=== PATIENT | male | born 1955 | race Caucasian/White ===

== ENCOUNTER 2016-06-18 04:04 | Inpatient (IN) | payer BC ==
[2016-06-18] VITALS (20 sets, daily range): BP systolic 140–220; BP diastolic 73–109; PULSE 77–100; RESP 16–26; TEMP 98.1–98.7; O2SAT 94–100
[~2016-06-18] VITALS: Ht 182.9 cm; Wt 127.8 kg
[2016-06-18] MEDS ORDERED: BUME1TAB28 PO (04:22)
[2016-06-18] MEDS ORDERED: HUMA100I3 SQ (04:22)
[2016-06-18] MEDS ORDERED: FERR1TAB36 PO (04:22)
[2016-06-18] MEDS ORDERED: LANTINJ SQ (04:22)
[2016-06-18] MEDS ORDERED: SODIUM CHLORIDE 0.9% FLUSH 5 ML FLUSH IVF PRN (04:30)
[2016-06-18] MEDS: niCARdipine INJ 25 MG in SODIUM CHLOR 0.9% 250 ML INJ 250 ML IV SCH ×4 (04:34→21:00)
[2016-06-18] MEDS ORDERED: ASPI81CH7 CHEW (04:38)
[2016-06-18] MEDS ORDERED: XARE15TA PO (04:38)
[2016-06-18] MEDS ORDERED: TAMS5CAP PO (04:39)
[2016-06-18] MEDS ORDERED: ATOR1TAB18 PO (04:39)
[2016-06-18 04:54] LABS: BLOOD GAS BASE EXCESS -2.3 mmol/L (-2-2); BLOOD GAS CARBOXYHEMOGLOBIN 1.8 % (0-4); BLOOD GAS HCO3 22 mmol/L (22-26); BLOOD GAS METHEMOGLOBIN 0.6 % (0-2); BLOOD GAS O2 HGB SATURATION 97 % (90-100); BLOOD GAS OXYGEN CONTENT 13.5 Vol % (12.0-20.0); BLOOD GAS PCO2 37 mmHg (38-42); BLOOD GAS PO2 157 mmHg (61-120); BLOOD GAS TOTAL HGB 9.6 G/DL (12.0-16.0); CRITICAL VALUE NO; OXYGEN DEVICE NPPV; TEMP CORR TO 98.6
[2016-06-18 04:55] LABS: DRAW SITE LT RADIAL; FIO2 40 %; NUMBER OF ARTERIAL PUNCTURES 1; STAT YES; ULNAR PULSE PRESENT; VENT SETTINGS IPAP12/EPAP5
[2016-06-18 05:11] LABS: APTT (PATIENT) 26.3 SEC (24.3-30.1); INTERNATIONAL NORMALIZED RATIO 1.1 RATIO; PROTHROMBIN TIME - PATIENT 11.9 SEC (9.8-11.6)
[2016-06-18 05:17] LABS: ALT (GPT) 31 U/L (12-78); ANION GAP 11 MEQ/L (5-15); AST (GOT) 30 U/L (15-37); BICARBONATE 24.4 MEQ/L (21.0-32.0); BLOOD UREA NITROGEN 44 MG/DL (7-18); CHLORIDE 108 MEQ/L (98-107); GLOMERULAR FILTRATION RATE 23 ML/MIN (>89); MAGNESIUM 1.9 MG/DL (1.5-2.5); POTASSIUM 3.8 MEQ/L (3.5-5.1); SODIUM (NA) 143 MEQ/L (136-145)
[2016-06-18 05:21] LABS: ALKALINE PHOSPHATASE 110 U/L (45-117); CREATINE KINASE 335 U/L (39-308); TOTAL BILIRUBIN ADULT 0.4 MG/DL (0.2-1.0)
[2016-06-18 05:24] LABS: AUTOMATED NEUTROPHIL # 5.6 TH/MM3 (1.8-7.7); BASOPHIL # 0.1 TH/MM3 (0-0.2); BASOPHIL % 1.1 % (0.0-2.0); EOSINOPHIL # 0.2 TH/MM3 (0-0.4); EOSINOPHIL % 2.4 % (0.0-4.0); HEMATOCRIT 30.8 % (39.0-51.0); LYMPH % 16.9 % (9.0-44.0); LYMPHOCYTE # 1.4 TH/MM3 (1.0-4.8); MEAN CELL VOLUME 82.3 FL (80.0-100.0); MEAN CORPUSCULAR HEMOGLOBIN 27.1 PG (27.0-34.0); MEAN CORPUSCULAR HGB CONC 32.9 % (32.0-36.0); MONO % 10.1 % (0.0-8.0); NEUT % 69.5 % (16.0-70.0); PLATELET COUNT 312 TH/MM3 (150-450); RED BLOOD COUNT 3.75 MIL/MM3 (4.50-5.90); RED CELL DISTRIBUTION WIDTH 14.1 % (11.6-17.2)
[2016-06-18 05:33] LABS: CKMB 5.9 NG/ML (0.5-3.6)
[2016-06-18] MEDS ORDERED: ASPIRIN 81 MG CHEW TAB CHEW ONE (06:00)
[2016-06-18] MEDS ORDERED: ACETAMINOPHEN 325 MG TAB PO PRN (06:30)
[2016-06-18] MEDS ORDERED: SODIUM CHLORIDE 0.9% FLUSH 5 ML FLUSH FLUSH PRN (06:30)
[2016-06-18] MEDS ORDERED: ONDANSETRON HCL 4 MG/2 ML VIAL IVP PRN (06:30)
[2016-06-18] MEDS ORDERED: BISACODYL 10 MG SUPP PR PRN (06:30)
[2016-06-18] MEDS ORDERED: DEXTROSE 50% IN WATER 50 ML VIAL(D50) IV PUSH PRN (06:30)
[2016-06-18] MEDS ORDERED: GLUCAGON 1 MG/ML VIAL OTHER PRN (06:30)
--- NOTE | 2016-06-18 06:31 | PD ---
HPI Chief Complaint: Respiratory Distress Time Seen by Provider: 04:16 Travel History International Travel<30 days: No Contact w/Intl Traveler<30days: No Traveled to known affect area: No History of Present Illness HPI Patient 60-year-old male presents emergency department for shortness of breath fairly acute onset tonight. According to EMS his initial saturation was 93 on room air. They noted rales throughout all lung cote and started him on BiPAP. Patient does have a history of chronic renal disease not currently on dialysis also has a history of CHF and a prior NSTEMI that is not had any stents nor CABG. Patient also endorses some tight left-sided chest pain radiating down his left arm. Denies any fever denies any cough or congestion. Denies any abdominal pain. On arrival patient states he is breathing much better with CPAP. PFSH Past Medical History Cardiovascular Problems: Yes High Cholesterol: Yes Congestive Heart Failure: Yes Cerebrovascular Accident: Yes (right side deficit) Diabetes: Yes Patient Takes Glucophage: No Diminished Hearing: No GERD: Yes Genitourinary: Yes (kidneys at 22%) Hypertension: Yes Respiratory: Yes Myocardial Infarction: Yes Triglycerides - High: Yes Past Surgical History Oral Surgery: Yes Social History Alcohol Use: Yes (occasional) Tobacco Use: No (quit 17 yrs ago) Substance Use: No Allergies-Medications (Allergen,Severity, Reaction): Coded Allergies: No Known Allergies (Unverified , 06/18/16) Reported Meds & Prescriptions Reported Meds & Active Scripts Active Reported Atorvastatin (Atorvastatin Calcium) 80 Mg Tab 80 Mg PO HS Flomax (Tamsulosin HCl) 0.4 Mg Cap 0.4 Mg PO HS Aspirin Children's (Aspirin) 81 Mg Chew 81 Mg CHEW DAILY Xarelto (Rivaroxaban) 15 Mg Tab 15 Mg PO DAILY Iron (Ferrous Sulfate) 325 Mg Tab 325 Mg PO BIDPC Take after a meal. Lantus Solostar Pen Inj (Insulin Glargine) 300 Unit/3 Ml Pen 55 Units SQ HS Humalog Kwikpen Pen Inj (Insulin Lispro (Human) Inj) 300 Unit/3 Ml Pen 20 Units SQ ACHS Bumex (Bumetanide) 2 Mg Tab 2 Mg PO BID Review of Systems Except as stated in HPI: all other systems reviewed are Neg Physical Exam Narrative GENERAL: Well-developed well-nourished on CPAP with subcostal retractions. SKIN: Warm and dry. HEAD: Atraumatic. Normocephalic. EYES: Pupils equal and round. No scleral icterus. No injection or drainage. ENT: No nasal bleeding or discharge. Mucous membranes pink and moist. NECK: Trachea midline. No JVD. CARDIOVASCULAR: Regular rate and rhythm. No murmur appreciated 2+ bilateral equal pulses in all 4 extremities.. RESPIRATORY: No accessory muscle use. Clear to auscultation. Breath sounds equal bilaterally. Increased work of breathing. GASTROINTESTINAL: Abdomen soft, non-tender, nondistended. Hepatic and splenic margins not palpable. MUSCULOSKELETAL: No obvious deformities. No clubbing. No cyanosis. 2+ pitting edema to bilateral lower extremities to the level of the anterior tibial prominence. NEUROLOGICAL: Awake and alert. No obvious cranial nerve deficits. Motor grossly within normal limits. Normal speech. PSYCHIATRIC: Appropriate mood and affect; insight and judgment normal. Data Data Last Documented VS Vital Signs Date Time Temp Pulse Resp B/P Pulse Ox O2 Delivery O2 Flow Rate FiO2 06/18/16 06:02 140/74 06/18/16 05:51 98 Nasal Cannula 2.00 06/18/16 05:30 87 06/18/16 05:15 16 35 06/18/16 04:07 98.7 Orders B-Type Natriuretic Peptide (06/18/16 04:16) Ckmb (Isoenzyme) Profile (06/18/16 04:16) Complete Blood Count With Diff (06/18/16 04:16) Comprehensive Metabolic Panel (06/18/16 04:16) Magnesium (Mg) (06/18/16 04:16) Prothrombin Time / Inr (Pt) (06/18/16 04:16) Act Partial Throm Time (Ptt) (06/18/16 04:16) Troponin I (06/18/16 04:16) Chest, Single Ap (06/18/16 04:16) Ecg Monitoring (06/18/16 04:16) Bilateral Bp Monitoring (06/18/16 04:16) Iv Access Insert/Monitor (06/18/16 04:16) Oximetry (06/18/16 04:16) Oxygen Administration (06/18/16 04:16) Sodium Chloride 0.9% Flush (Ns Flush) (06/18/16 04:30) Nicardipine Inj (Cardene Inj) (06/18/16 04:30) Resp Bipap / Cpap Non Invas Vt (06/18/16 ) Arterial Blood Gas (Abg) (06/18/16 ) CKMB (06/18/16 04:30) CKMB% (06/18/16 04:30) Aspirin Chew (Aspirin Chew) (06/18/16 06:00) Admit Order (Ed Use Only) (06/18/16 ) Urinalysis - C+S If Indicated (06/18/16 06:26) Admit To Inpatient (06/18/16 ) Vital Signs (Adult) Q4H (06/18/16 06:26) Activity Oob With Assistance (06/18/16 06:26) Principle Software Engineer / Telemetry .CONTINUOUS (06/18/16:26) Intake + Output TONG.QSHIFT (06/18/16 06:26) Diet 1800 Ada Cons Carb (06/18/16 Breakfast) Sodium Chloride 0.9% Flush (Ns Flush) (06/18/16 06:30) Sodium Chloride 0.9% Flush (Ns Flush) (06/18/16 09:00) Ondansetron Inj (Zofran Inj) (06/18/16 06:30) Bisacodyl Supp (Dulcolax Supp) (06/18/16 06:30) Comprehensive Metabolic Panel (06/19/16 06:00) Complete Blood Count With Diff (06/19/16 06:00) Troponin I (06/18/16 10:00) Troponin I (06/18/16 16:00) Pharmacologic Contraindication (06/18/16 06:26) Acetaminophen (Tylenol) (06/18/16 06:30) Acetamin-Hydrocod 325-5 Mg (Stuart 5-325 (06/18/16 06:30) Morphine Inj (Morphine Inj) (06/18/16 06:30) Inpatient Certification (06/18/16 ) Bedside Glucose TONG.AC&HS (06/18/16:26) ^ Blood Glucose Goal (Criteria (06/18/16 06:26) ^ Hypoglycemia 51 - 69 Mg/Dl (06/18/16 06:26) ^ Hypoglycemia 50 Mg/Dl Or < (06/18/16 06:26) ^ Notify Dr: Other (06/18/16 06:26) Dextrose 50% In Jarret (Vial) Inj (D50w (Vi (06/18/16 06:30) Glucagon Inj (Glucagon Inj) (06/18/16 06:30) Insulin Aspart Supplemtl Scale (Novolog (06/18/16 07:00) Hemoglobin (Hgb) A1c (06/18/16 10:00) Lipid Profile (06/18/16 10:00) Aspirin Chew (Aspirin Chew) (06/18/16 09:00) Atorvastatin (Lipitor) (06/18/16 21:00) Bumetanide (Bumetanide) (06/18/16 09:00) Ferrous Sulfate (Ferrous Sulfate) (06/18/16 09:00) Rivaroxaban (Xarelto) (06/18/16 09:00) Tamsulosin (Flomax) (06/18/16 21:00) Patient Own Medication (06/18/16 21:00) Labs Laboratory Tests Test 06/18/16 04:30 White Blood Count 8.0 TH/MM3 Red Blood Count 3.75 MIL/MM3 Hemoglobin 10.1 GM/DL Hematocrit 30.8 % Mean Corpuscular Volume 82.3 FL Mean Corpuscular Hemoglobin 27.1 PG Mean Corpuscular Hemoglobin 32.9 % Concent Red Cell Distribution Width 14.1 % Platelet Count 312 TH/MM3 Mean Platelet Volume 8.7 FL Neutrophils (%) (Auto) 69.5 % Lymphocytes (%) (Auto) 16.9 % Monocytes (%) (Auto) 10.1 % Eosinophils (%) (Auto) 2.4 % Basophils (%) (Auto) 1.1 % Neutrophils # (Auto) 5.6 TH/MM3 Lymphocytes # (Auto) 1.4 TH/MM3 Monocytes # (Auto) 0.8 TH/MM3 Eosinophils # (Auto) 0.2 TH/MM3 Basophils # (Auto) 0.1 TH/MM3 CBC Comment AUTO DIFF Differential Comment AUTO DIFF CONFIRMED Ovalocytes 1+ Keratocytes 1+ Prothrombin Time 11.9 SEC Prothromb Time International 1.1 RATIO Ratio Activated Partial 26.3 SEC Thromboplast Time Blood Gas Puncture Site LT RADIAL Blood Gas Patient Temperature 98.6 Blood Gas HCO3 22 mmol/L Blood Gas Base Excess -2.3 mmol/L Blood Gas Oxygen Saturation 97 % Arterial Blood pH 7.39 Arterial Blood Partial 37 mmHg Pressure CO2 Arterial Blood Partial 157 mmHg Pressure O2 Arterial Blood Oxygen Content 13.5 Vol % Arterial Blood 1.8 % Carboxyhemoglobin Arterial Blood Methemoglobin 0.6 % Blood Gas Hemoglobin 9.6 G/DL Oxygen Delivery Device NPPV Blood Gas Ventilator Setting IPAP12/EPAP5 Blood Gas Inspired Oxygen 40 % Sodium Level 143 MEQ/L Potassium Level 3.8 MEQ/L Chloride Level 108 MEQ/L Carbon Dioxide Level 24.4 MEQ/L Anion Gap 11 MEQ/L Blood Urea Nitrogen 44 MG/DL Creatinine 2.77 MG/DL Estimat Glomerular Filtration 23 ML/MIN Rate Random Glucose 124 MG/DL Calcium Level 8.7 MG/DL Magnesium Level 1.9 MG/DL Total Bilirubin 0.4 MG/DL Aspartate Amino Transf 30 U/L (AST/SGOT) Alanine Aminotransferase 31 U/L (ALT/SGPT) Alkaline Phosphatase 110 U/L Total Creatine Kinase 335 U/L Creatine Kinase MB 5.9 NG/ML Creatine Kinase MB % 1.8 % Troponin I 0.25 NG/ML B-Type Natriuretic Peptide 304 PG/ML Total Protein 7.5 GM/DL Albumin 2.8 GM/DL [facility] Medical Decision Making Medical Screen Exam Complete: Yes Emergency Medical Condition: Yes Differential Diagnosis CHF exacerbation, hypertensive emergency, and STEMI, CAD, ACS, fluid overload, electrolyte abnormalities. Narrative Course Patient roomed in the emergency department, he was switched to BiPAP and ultimately was able to be weaned off to nasal cannula after he was diuresed with Bumex. Systolic blood pressure was noted to be in the 220s her present antihypertensive emergency and he was started on Cardene ultimately was able to be weaned off in the emergency department as well. Creatinine is elevated at 2.7 without previous for comparison. Troponin elevated 0.25 again without previous for comparison. His EKG is nonischemic. Overall the patient has improved significantly since arrival of EMS. Last 24 hours Impressions Chest X-Ray 06/18/16 0416 Signed Impressions: Service Date/Time: Saturday, June 18, 2016 04:50 - CONCLUSION: Mild basilar parenchymal opacities. Enrrique Dickson MD History is consistent with acute pulmonary edema by time his chest x-ray was taken here he had already received multiple interventions including BiPAP does have some mild pulmonary edema on his chest x-ray. We'll defer heparinization at this time given his anticoagulant status. Discussed with the patient his results including the elevated troponin creatinine and his pulmonary edema. I recommended he be admitted to the hospital and he is agreeable. Patient was discussed with Dr. Herring and agrees recommendations for CIC. Patient does not have a business asst in the area and she is from out of town. Critical Care Narrative Aggregate critical care time was 35 minutes. Time to perform other separately billable procedures was not included in the critical care time. My time did not include minutes spent treating any other patients simultaneously or on activities that did not directly contribute to the patient's treatment. The services I provided to this patient were to treat and/or prevent clinically significant deterioration that could result in: , disability, organ failure. I provided critical care services requiring my management, as noted below: Chart data review, documentation time, medication orders and management, vital sign assessments/reviewing monitor data, ordering and reviewing lab tests, ordering and interpreting/reviewing x-rays and diagnostic studies, care of the patient and discussion of the patient with the admitting physicians. Diagnosis Primary Impression: Hypertensive emergency Additional Impressions: NSTEMI (non-ST elevated myocardial infarction) Shortness of breath Pulmonary edema Qualified Code: J81.0 - Acute pulmonary edema Admitting Information Admitting Physician Requests: Admit Condition: Stable Michael Rosenbaum MD Jun 18, 2016 06:31
[2016-06-18 06:35] LABS: HEMO FLAGS AUTO DIFF
[2016-06-18 06:36] LABS: KERATOCYTES 1+ (NORMAL); OVALOCYTES 1+ (NORMAL); SCAN/DIFF AUTO DIFF CONFIRMED
[2016-06-18] MEDS: INSULIN ASPART SUPPLEMENTAL SCALE SQ SCH ×4 (07:00→21:01)
--- NOTE | 2016-06-18 07:11 | RADRPT ---
EXAM DATE/TIME: 06/18/2016 04:50 [place] COMPARISON: No previous studies available for comparison. INDICATIONS : Shortness of breath. MEDICAL HISTORY : None. SURGICAL HISTORY : None. ENCOUNTER: Initial ACUITY: 1 day PAIN SCORE: Non-responsive. LOCATION: Bilateral chest FINDINGS: Appears be mild hazy basilar parenchymal opacity bilaterally. Accounting for projection, cardiac cont ours are grossly satisfactory. CONCLUSION: Mild basilar parenchymal opacities. Enrrique Dickson MD on June 18, 2016 at 7:09 Board Certified Radiologist. This report was verified electronically.
--- NOTE | 2016-06-18 08:27 | HHI.HP ---
[facility] Unknown Admission Diagnosis CHF, NSTEMI, CP. Diagnoses: (1) Acute respiratory failure (2) Acute renal failure (3) Elevated troponin I level Chief Complaint: Dyspnea Travel History International Travel<30 Days: No Contact w/Intl Traveler <30 Da: No Traveled to Known Affected Are: No History of Present Illness The patient is a 60-year-old male with known history of CHF who is in town for a few weeks visiting from [place]. He states that he has not been following his diet, fluid restriction over the last few days. He reports that at 2:30 this morning he was awakened from sleep with a sensation of not being able to catch his breath. He reports coughing, nonproductive. He had mild chest pain that did not radiate. He reports chronic kidney disease, stating that his kidneys "are at about 23%". He is feeling somewhat better after treatment in the ER. No chest pain currently. Review of Systems Constitutional: DENIES: Fever, Chills, Night Sweats Eyes: DENIES: Blurred vision, Vision loss Ears, nose, mouth, throat: DENIES: Hearing loss Respiratory: COMPLAINS OF: Cough, Shortness of breath, DENIES: Wheezing, Sputum production Cardiovascular: COMPLAINS OF: Chest pain, Dyspnea on Exertion, Lower Extremity Edema, DENIES: Palpitations Gastrointestinal: COMPLAINS OF: Constipation, DENIES: Abdominal pain, Diarrhea , Nausea, Vomiting Genitourinary: DENIES: Urinary frequency, Urinary incontinence, Urgency, Hematuria, Dysuria, Nocturia Musculoskeletal: DENIES: Joint pain, Muscle aches Integumentary: DENIES: Pruritus, Rash Hematologic/lymphatic: DENIES: Bruising Neurologic: DENIES: Headache Past Family Social History Past Medical History Congestive heart failure Coronary artery disease Diabetes mellitus Hypertension Hyperlipidemia Chronic kidney disease stage III History of CVA with residual right-sided weakness GERD Past Surgical History Vascular bypass of left lower extremity Reported Medications Atorvastatin (Atorvastatin Calcium) 80 Mg Tab 80 Mg PO HS Flomax (Tamsulosin HCl) 0.4 Mg Cap 0.4 Mg PO HS Aspirin Children's (Aspirin) 81 Mg Chew 81 Mg CHEW DAILY Xarelto (Rivaroxaban) 15 Mg Tab 15 Mg PO DAILY Iron (Ferrous Sulfate) 325 Mg Tab 325 Mg PO BIDPC Take after a meal. Lantus Solostar Pen Inj (Insulin Glargine) 300 Unit/3 Ml Pen 55 Units SQ HS Humalog Kwikpen Pen Inj (Insulin Lispro (Human) Inj) 300 Unit/3 Ml Pen 20 Units SQ ACHS Bumex (Bumetanide) 2 Mg Tab 2 Mg PO BID Allergies: Coded Allergies: No Known Allergies (Unverified , 06/18/16) Family History Mother is diabetic. Brother has Crohn's disease. Social History Patient reports rare alcohol use. Quit smoking 17 years ago. Denies illicit drug use. Physical Exam Vital Signs Vital Signs Date Time Temp Pulse Resp B/P Pulse Ox O2 Delivery O2 Flow Rate FiO2 06/18/16 08:19 99 Nasal Cannula 2 06/18/16 06:02 140/74 06/18/16 05:51 98 Nasal Cannula 2.00 06/18/16 05:30 87 141/74 06/18/16 05:15 84 16 164/73 100 CPAP 35 06/18/16 04:55 100 30 06/18/16 04:37 100 CPAP 50 06/18/16 04:37 16 100 CPAP 50 06/18/16 04:35 200/90 06/18/16 04:35 220/109 210/102 06/18/16 04:07 98.7 92 16 220/109 100 06/18/16 04:05 100 50 06/18/16 04:00 100 100 Physical Exam GENERAL: Obese male in no acute distress. Speech is mildly slurred. HEENT: Normocephalic, atraumatic. Pupils equal, round and reactive. Extraocular movements intact. No scleral icterus. No injection or drainage. Oropharynx is clear. Mucous membranes are moist. CARDIOVASCULAR: Regular rate and rhythm without murmurs, gallops, or rubs. RESPIRATORY: Bilateral crackles are noted. Breathing is non-labored. GASTROINTESTINAL: Abdomen soft, non-tender, nondistended. EXTREMITIES: 2+ bilateral lower extremity edema with serous fluid weeping. There is erythema of both lower legs. PSYCH: Alert and oriented x 3. Laboratory Laboratory Tests Test 06/18/16 04:30 White Blood Count 8.0 Red Blood Count 3.75 Hemoglobin 10.1 Hematocrit 30.8 Mean Corpuscular Volume 82.3 Mean Corpuscular Hemoglobin 27.1 Mean Corpuscular Hemoglobin 32.9 Concent Red Cell Distribution Width 14.1 Platelet Count 312 Mean Platelet Volume 8.7 Neutrophils (%) (Auto) 69.5 Lymphocytes (%) (Auto) 16.9 Monocytes (%) (Auto) 10.1 Eosinophils (%) (Auto) 2.4 Basophils (%) (Auto) 1.1 Neutrophils # (Auto) 5.6 Lymphocytes # (Auto) 1.4 Monocytes # (Auto) 0.8 Eosinophils # (Auto) 0.2 Basophils # (Auto) 0.1 CBC Comment AUTO DIFF Differential Comment AUTO DIFF CONFIRMED Ovalocytes 1+ Keratocytes 1+ Prothrombin Time 11.9 Prothromb Time International 1.1 Ratio Activated Partial 26.3 Thromboplast Time Blood Gas Puncture Site LT RADIAL Blood Gas Patient Temperature 98.6 Blood Gas HCO3 22 Blood Gas Base Excess -2.3 Blood Gas Oxygen Saturation 97 Arterial Blood pH 7.39 Arterial Blood Partial 37 Pressure CO2 Arterial Blood Partial 157 Pressure O2 Arterial Blood Oxygen Content 13.5 Arterial Blood 1.8 Carboxyhemoglobin Arterial Blood Methemoglobin 0.6 Blood Gas Hemoglobin 9.6 Oxygen Delivery Device NPPV Blood Gas Ventilator Setting IPAP12/EPAP5 Blood Gas Inspired Oxygen 40 Sodium Level 143 Potassium Level 3.8 Chloride Level 108 Carbon Dioxide Level 24.4 Anion Gap 11 Blood Urea Nitrogen 44 Creatinine 2.77 Estimat Glomerular Filtration 23 Rate Random Glucose 124 Calcium Level 8.7 Magnesium Level 1.9 Total Bilirubin 0.4 Aspartate Amino Transf 30 (AST/SGOT) Alanine Aminotransferase 31 (ALT/SGPT) Alkaline Phosphatase 110 Total Creatine Kinase 335 Creatine Kinase MB 5.9 Creatine Kinase MB % 1.8 Troponin I 0.25 B-Type Natriuretic Peptide 304 Total Protein 7.5 Albumin 2.8 Result Diagram: 06/18/1642906/18/16429 Imaging Last Impressions Chest X-Ray 06/18/16415 Signed Impressions: Service Date/Time: Saturday, June 18, 2016 04:50 - CONCLUSION: Mild basilar parenchymal opacities. Enrrique Dickson MD Assessment and Plan Assessment and Plan 1. CHF exacerbation: Patient presented with acute dyspnea likely related to fluid overload. Continue diuresis. Fluid restriction. Check echocardiogram. 2. Acute respiratory failure: Secondary to above. Improved. Patient required BiPAP initially. Now stable on nasal cannula. Continue supplemental oxygen. 3. Diabetes mellitus: Monitor Accu-Cheks and cover with sliding scale insulin. Continue Levemir. 4. Chronic kidney disease stage III: Monitor BUN and creatinine, especially with increased diuresis. 5. Hypertension: Blood pressure was significantly elevated upon presentation to the ER. Patient was started on Cardene drip, and blood pressures improved. Now off all drips. 6. Hyperlipidemia: Continue statin. 7. Elevated troponin: Possible non-ST elevation [place]. Consult cardiology. Monitor serial cardiac enzymes and EKGs. 8. DVT prophylaxis: Xarelto. Code Status FULL CODE Otoniel Cordero MD Jun 18, 2016 08:27
[2016-06-18] MEDS ORDERED: BUMETANIDE 1 MG TAB PO SCH (09:00)
[2016-06-18] MEDS ORDERED: RIVAROXABAN 15 MG TAB PO SCH (09:00)
[2016-06-18] MEDS: FERROUS SULFATE 325 MG (65 MG ELEMENTAL IRON) TAB PO SCH ×2 (09:07→17:50)
[2016-06-18] MEDS: SODIUM CHLORIDE 0.9% FLUSH 5 ML FLUSH FLUSH SCH ×2 (09:08→21:00)
[2016-06-18] MEDS: BUMETANIDE INJ 1 MG/4 ML VIAL IV PUSH SCH ×2 (09:08→17:50)
[2016-06-18] MEDS: ASPIRIN 81 MG CHEW TAB CHEW SCH (09:08)
[2016-06-18 09:50] LABS: BLOOD, URINE MOD (NEG); COMMENT (UR) CULT NOT INDICATED; CULTURE IF INDICATED CULT NOT INDICATED; GLUCOSE,URINE 150 mg/dL (NEG); KETONE, URINE NEG (NEG); MUCUS URINE FEW /lpf (OCC); NITRITE,URINE NEG (NEG); PH, URINE 6.5 (5.0-8.5); SQUAMOUS EPITHELIAL CELL URINE <1 /hpf (0-5); URINE COLOR YELLOW (YELLW/STRAW)
[2016-06-18 12:41] LABS: HDL CHOLESTEROL 36.4 MG/DL (40.0-60.0); LDL CHOLESTEROL 55 MG/DL (0-99)
[2016-06-18] MEDS ORDERED: cloNIDine HCL 0.1 MG TAB PO PRN (13:00)
--- NOTE | 2016-06-18 14:19 | EC ---
Study Study Date:06/18/2016 STUDY CONCLUSIONS SUMMARY - Left ventricle: Wall thickness was increased in a pattern of mild LVH. Systolic function was mildly to moderately reduced. The estimated ejection fraction was in the range of 40% to 45%. Severe hypokinesis of the apical myocardium. - Aortic valve: Valve area: 1.06cm^2(VTI). Valve area: 1.2cm^2 (Vmax). If LV function is below 40, please consider prescribing an ACEI or ARB or document rationale for non-use. PROCEDURE DATA STUDY STATUS: Elective. Procedure: Transthoracic echocardiography. Image quality was poor. Scanning was performed from the parasternal, apical, and subcostal acoustic windows. Study completion: The patient tolerated the procedure well. Transthoracic echocardiography. M-mode, complete 2D, complete spectral Doppler, and color Doppler. Patient status: Inpatient. CARDIAC ANATOMY LEFT VENTRICLE: Wall thickness was increased in a pattern of mild LVH. Systolic function was mildly to moderately reduced. The estimated ejection fraction was in the range of 40% to 45%. Regional wall motion abnormalities: Severe hypokinesis of the apical myocardium. AORTIC VALVE: heavily thickened and calcified leaflests with peak gradient =19 mm hg c/w mild aortic valve stenosis Trileaflet; normal thickness leaflets. Doppler: Transvalvular velocity was within the normal range. There was no stenosis. No regurgitation. Valve area: 1.06cm^2(VTI). Valve area: 1.2cm^2 (Vmax). Mean gradient: 10mm Hg (S). Peak gradient: 19mm Hg (S). AORTA: Aortic root: The aortic root was normal in size. MITRAL VALVE: Structurally normal valve. Doppler: Transvalvular velocity was within the normal range. There was no evidence for stenosis. No regurgitation. Valve area by pressure half-time: 3.61cm^2. LEFT ATRIUM: The atrium was normal in size. RIGHT VENTRICLE: The cavity size was normal. Wall thickness was normal. PULMONIC VALVE: Doppler: Transvalvular velocity was within the normal range. There was no evidence for stenosis. No regurgitation. TRICUSPID VALVE: Structurally normal valve. Doppler: Transvalvular velocity was within the normal range. No regurgitation. PULMONARY ARTERY: The main pulmonary artery was normal-sized. Systolic pressure was within the normal range. RIGHT ATRIUM: The atrium was normal in size. PERICARDIUM: There was no pericardial effusion. SYSTEMIC VEINS: Inferior vena cava: The vessel was normal in size. BASIC MEASUREMENTS ADULT NORMAL Left ventricle LV internal dimension, ED, chordal level, 49.8 mm 43-52 PLAX LV internal dimension, ES, chordal level, *41 mm 23-38 PLAX Fractional shortening, chordal level, PLAX *18 % >29 LV posterior wall thickness, ED 15.6 mm IVS/LVPW ratio, ED 0.81 <1.3 Ventricular septum Septal thickness, ED 12.7 mm Aortic valve Leaflet separation *8 mm 15-26 Right ventricle RV internal dimension, ED, PLAX 29.5 mm 19-38 BASIC MEASUREMENTS ADULT NORMAL Aortic valve Leaflet separation *8 mm 15-26 Aorta Root diameter, ED 34 mm 20-37 Left atrium Anterior-posterior dimension, ES 33 mm 19-40 LA/aortic root ratio 0.97 DOPPLER MEASUREMENTS ADULT NORMAL Aortic valve Peak velocity, S 219 cm/s Mean velocity, S 147 cm/s VTI, S 49.6 cm Mean gradient, S 10 mm Hg Peak gradient, S 19 mm Hg Valve area, VTI 1.06 cm^2 Valve area, Vmax 1.2 cm^2 Mitral valve Pressure half-time 61 ms Valve area, pressure half-time 3.61 cm^2 LEGEND: Mean values are shown as u=mean value. Asterisk (*) rosa values outside specified normal range. Prepared and signed by Sammy Pierre [id number]
--- NOTE | 2016-06-18 15:42 | MB ---
cc: SAMMY ANDRADE M.D. DATE OF CONSULTATION: 06/18/2016 HISTORY OF PRESENT ILLNESS Devaughn is a very pleasant 60-year-old gentleman visiting from [place]. He has an established history of stage IV renal failure, had a non-STEMI a year ago, established history of CHF. He presented to the emergency room with chief complaint of shortness of breath, sats 93% on room air. He was started on BiPAP. He was also severely hypertensive as well in the ER. He also admitted to some left-sided chest pain described as tightness, radiating to the left arm. Otherwise denies any fevers, chills, cough, GI or bleeding, PND, orthoopnea, syncope or dizziness. PAST MEDICAL HISTORY His past medical history is per history of present illness. 1. He has a history of hyperlipidemia. 2. CHF. 3. CVA with right hemiparesis. 4. Diabetes. 5. GERD. 6. Hypertension. 7. Myocardial infarction. SOCIAL HISTORY Drinks alcohol occasionally. Quit smoking 17 years ago. ALLERGIES None. MEDICATION Medications in the hospital: 1. Potassium. 2. Atorvastatin 80 at bedtime. 3. Flomax 0.4 at bedtime. 4. Aspirin 81 mg daily. 5. Ferrous sulfate 325 b.i.d. 6. Xarelto 15 daily. 7. Bumex 1 mg b.i.d. IV. 8. Sliding scale insulin. 9. Nicardipine drip. PHYSICAL EXAMINATION VITAL SIGNS: Blood pressure 146/73, pulse 81, temperature 98.3, respiratory rate 22, blood pressure on admission was 220/109. GENERAL: He is alert and oriented x3, in no acute distress. NECK: Supple. No JVD or bruit. CARDIOVASCULAR: S1, S2. No murmurs, rubs or gallops. LUNGS: Clear to auscultation bilaterally. ABDOMEN: Soft, nontender, nondistended with positive bowel sounds. EXTREMITIES: No lower extremity edema. IMAGING STUDIES Chest x-ray shows mild basilar parenchymal opacities. EKG Shows sinus rhythm at 87 beats per minute. 1/[address] segment depression in the inferior leads and anterolateral leads, prolonged corrected QT interval of 467 milliseconds. LABORATORY DATA White count 8.0, hemoglobin 10.1, hematocrit 30.8, platelet count 312, sodium 143, potassium 3.8, chloride 108, bicarb 24.4, BUN 44, creatinine 2.77. LFTs normal. Initial troponin is 0.25. Second troponin is 3.49. BNP is 304, albumin 2.8, LDL 55, INR 1.1. Blood gas pH 7.39, pCO2 37, pO2 157 on 40% oxygen by I-PAP and E-PAP. DIAGNOSES 1. Non-STEMI. 2. Decompensated congestive heart failure. 3. Severe hypertension. 4. Stage IV renal failure. 5. History of CVA. 6. Hypoalbuminemia. 7. Anemia. 8. Diabetes mellitus. 9. Cardiomyopathy. 10. Aortic valve stenosis. 11. Hyperlipidemia. DISCUSSION I have recommended a left heart catheterization with PCI to the patient. I have explained that he is extremely high risk for needing temporary or permanent dialysis with cath and PCI however, I explained to him that I cannot rule out a life-threatening stenosis causing his symptoms and elevated troponin. He has multiple comorbidities including chronic renal sufficiency, diabetes, history of CVA, severely uncontrolled blood pressure greater than 180 systolic, decompensated congestive heart failure, aortic valve stenosis, aortic valve calcification. He is very high-risk for poor outcome given these multiple comorbidities. At this point in time I have explained this in the presence of the nurse at the bedside, the patient refuses heart catheterization. He clearly understands his risk. Therefore, plan is optimal medical therapy, beta-blockers are being held due to decompensated congestive heart failure. ROBERT inhibitors are being held due to stage IV renal failure, possible acute renal insufficiency, well controlled on Lipitor 80. The patient is on aspirin 81 mg daily and Xarelto. 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 Blood pressure is improved and would be cautious about too precipitous of blood pressure drop to avoid any cerebrovascular hypotensive events due to cerebral autoregulation and possible chronic hypertension. Sammy Andrade MD AWC/TLL /2:51 PM /3:14 PM
[2016-06-18 15:56] LABS: HEMOGLOBIN A1a 1.6 %; HEMOGLOBIN A1b 1.9 %; HEMOGLOBIN Ao 82.9 %; HEMOGLOBIN LA1C 2.6 %; HEMOGLOBIN P3 6.7 %
[2016-06-18 16:54] LABS: BICARBONATE 26.1 MEQ/L (21.0-32.0); POTASSIUM 3.5 MEQ/L (3.5-5.1)
--- NOTE | 2016-06-18 18:30 | EKG ---
Date Performed: 06/18/2016 Time Performed: 06:14:06 PTAGE: 60 years EKG: Sinus rhythm POSSIBLE LEFT ATRIAL ENLARGEMENT NONSPECIFIC ST & T-WAVE ABNORMALITY PROLONGED QT INTERVAL Consider anterolateral and inferior ischemia. ABNORMAL ECG NO PREVIOUS TRACING DOCTOR: Sammy Pierre Interpretating Date/Time 06/18/2016 18:28:15
[2016-06-18] MEDS: MORPHINE SULFATE 4 MG/ML INJ IV PRN (19:10)
[2016-06-18] MEDS ORDERED: NITROGLYCERIN 0.3 MG SL 100 TABS/BTL SL PRN (20:30)
[2016-06-18] MEDS: TAMSULOSIN HCL 0.4 MG CAP PO SCH (20:58)
[2016-06-18] MEDS: ATORVASTATIN 80 MG TAB PO SCH (20:59)
[2016-06-18] MEDS ORDERED: NITROGLYCERIN 0.4 MG SL 25 TABS/BTL SL ONE (21:19)
[2016-06-19] VITALS (15 sets, daily range): BP systolic 110–146; BP diastolic 56–77; PULSE 83–116; RESP 18–22; TEMP 97.2–98.4; O2SAT 94–99
[2016-06-19] MEDS: niCARdipine INJ 25 MG in SODIUM CHLOR 0.9% 250 ML INJ 250 ML IV SCH ×2 (01:16→05:34)
[2016-06-19] MEDS: INSULIN ASPART SUPPLEMENTAL SCALE SQ SCH ×4 (06:36→20:49)
[2016-06-19 07:02] LABS: AUTOMATED NEUTROPHIL # 4.2 TH/MM3 (1.8-7.7); BASOPHIL # 0.1 TH/MM3 (0-0.2); BASOPHIL % 1.2 % (0.0-2.0); EOSINOPHIL # 0.1 TH/MM3 (0-0.4); EOSINOPHIL % 2.1 % (0.0-4.0); HEMATOCRIT 25.7 % (39.0-51.0); HEMO FLAGS DIFF FINAL; LYMPH % 12.6 % (9.0-44.0); LYMPHOCYTE # 0.7 TH/MM3 (1.0-4.8); MEAN CELL VOLUME 81.8 FL (80.0-100.0); MEAN CORPUSCULAR HEMOGLOBIN 26.9 PG (27.0-34.0); MEAN CORPUSCULAR HGB CONC 32.8 % (32.0-36.0); MONO % 10.5 % (0.0-8.0); NEUT % 73.6 % (16.0-70.0); PLATELET COUNT 264 TH/MM3 (150-450); RED BLOOD COUNT 3.14 MIL/MM3 (4.50-5.90); RED CELL DISTRIBUTION WIDTH 14.1 % (11.6-17.2); WHITE BLOOD COUNT 5.7 TH/MM3 (4.0-11.0)
[2016-06-19 07:27] LABS: ALT (GPT) 27 U/L (12-78); ANION GAP 10 MEQ/L (5-15); AST (GOT) 56 U/L (15-37); BICARBONATE 23.8 MEQ/L (21.0-32.0); BLOOD UREA NITROGEN 44 MG/DL (7-18); CHLORIDE 108 MEQ/L (98-107); GLOMERULAR FILTRATION RATE 23 ML/MIN (>89); POTASSIUM 3.7 MEQ/L (3.5-5.1); SODIUM (NA) 142 MEQ/L (136-145)
[2016-06-19 07:30] LABS: ALKALINE PHOSPHATASE 95 U/L (45-117); TOTAL BILIRUBIN ADULT 0.3 MG/DL (0.2-1.0)
[2016-06-19] MEDS: SODIUM CHLORIDE 0.9% FLUSH 5 ML FLUSH FLUSH SCH (09:00)
[2016-06-19] MEDS: FERROUS SULFATE 325 MG (65 MG ELEMENTAL IRON) TAB PO SCH ×2 (09:00→17:26)
[2016-06-19] MEDS: POTASSIUM CHLORIDE 10 MEQ CAP PO SCH (09:00)
--- NOTE | 2016-06-19 09:12 | HHI.PR ---
Subjective Remarks Follow up NSTEMI, hypertension. The patient states that he feels better this morning. He had an episode of chest pain yesterday evening that was associated with worsening dyspnea. That has resolved. Dyspnea has improved somewhat today. The patient has decided to proceed with cardiac catheterization this morning. Objective Vitals Vital Signs Date Time Temp Pulse Resp B/P Pulse Ox O2 Delivery O2 Flow Rate FiO2 06/19/16 07:32 97 Nasal Cannula 4.00 06/19/16 07:30 98.4 89 20 141/76 97 06/19/16 07:30 97 Nasal Cannula 4.00 06/19/16 04:30 98 Nasal Cannula 5.00 06/19/16 04:00 98 Nasal Cannula 4.00 06/19/16 03:30 97.2 85 22 134/75 99 06/19/16 03:30 98 Nasal Cannula 3.00 06/19/16 03:20 83 06/19/16 00:00 83 06/19/16 00:00 99 3.00 06/18/16 23:30 98.1 85 20 149/87 99 06/18/16 20:00 98 Partial Non-Rebreather 10.00 Non-Rebreather 06/18/16 19:56 99 Partial Rebreather 10.00 06/18/16 19:30 98.7 98 22 149/82 99 06/18/16 19:30 20 06/18/16 19:15 99 Non-Rebreather 15.00 06/18/16 19:10 100 06/18/16 19:00 94 Nasal Cannula 2.00 06/18/16 18:15 98.5 90 22 157/78 94 06/18/16 18:15 96 06/18/16 16:30 86 20 157/73 100 Nasal Cannula 2 06/18/16 14:20 98.3 81 22 146/73 98 Nasal Cannula 2 06/18/16 13:03 80 20 153/83 100 Nasal Cannula 2 06/18/16 12:26 77 22 189/83 100 Nasal Cannula 2 I/O 06/18/16 06/18/16 06/18/16 06/19/16 06/19/16 06/19/16 07:00 15:00 23:00 07:00 15:00 23:00 Intake Total 200 ml 1788 ml Output Total 900 ml 200 ml 575 ml Balance -700 ml -200 ml 1213 ml Intake Oral 200 ml 720 ml IV Total 1068 ml Output Urine Total 900 ml 200 ml 575 ml # Voids 3 1 # Bowel Movements 0 Result Diagram: 06/19/1630 06/19/16 0530 Imaging Last Impressions Chest X-Ray 06/18/16 0416 Signed Impressions: Service Date/Time: Saturday, June 18, 2016 04:50 - CONCLUSION: Mild basilar parenchymal opacities. Enrrique Dickson MD Objective Remarks General: No acute distress. Sitting up in a chair. Heart: Regular rate and rhythm. No murmur. Lungs: Clear to auscultation bilaterally. No wheezes, rales, or rhonchi. Breathing is nonlabored. Abdomen: Soft, nontender, nondistended. Extremities: No lower extremity edema. Psych: Alert and oriented. Procedures None Urinary Catheter: No Vascular Central Line Catheter: No A/P Problem List: (1) Acute respiratory failure ICD Code: J96.00 Status: Acute (2) Elevated troponin I level ICD Code: R74.8 Status: Acute (3) NSTEMI (non-ST elevated myocardial infarction) ICD Code: I21.4 Status: Acute (4) Hypertensive emergency ICD Code: I16.1 Status: Acute (5) Pulmonary edema ICD Code: J81.1 Status: Acute (6) Hypertension ICD Code: I10 Status: Chronic (7) Chronic kidney disease, stage 4 (severe) ICD Code: N18.4 Status: Acute Assessment and Plan 1. CHF exacerbation: Patient presented with acute dyspnea likely related to fluid overload. Continue diuresis. Fluid restriction. Check echocardiogram. 2. Acute respiratory failure: Secondary to above. Improved. Patient required BiPAP initially and was placed on non-rebreather last night. Now stable on nasal cannula. Continue supplemental oxygen. 3. Diabetes mellitus: Monitor Accu-Cheks and cover with sliding scale insulin. Continue Levemir. 4. Chronic kidney disease stage IV: Monitor BUN and creatinine, especially with increased diuresis. Consult nephrology. 5. Hypertension: Blood pressure was significantly elevated upon presentation to the ER. Still requiring Cardene drip overnight. 6. Hyperlipidemia: Continue statin. 7. NSTEMI: Appreciate cardiology recommendations. Cardiac catheterization to be done this morning. Beta-blockers on hold due to decompensated CHF. ROBERT-I on hold secondary to renal failure. Continue aspirin, statin. 8. DVT prophylaxis: Xarelto. Problem Qualifiers (1) Pulmonary edema: Qualified Code: J81.0 - Acute pulmonary edema Otoniel Cordero MD Jun 19, 2016 09:12
--- NOTE | 2016-06-19 09:26 | MB ---
cc: KENN ANDRADE M.D. DATE OF CONSULTATION: 06/19/2016 I did explain to the patient this morning that he was very high risk for cardiac morbidity and mortality without assessment for revascularization and possible revascularization. His troponin went up to 6. He remains in decompensated congestive heart failure with a BNP of 300 this morning. His creatinine is slightly improved from 3.0 to 2.85. I explained to him that the risks of cardiac catheterization, PCI is a 15-20% chance of , stroke, heart attack, bleeding, infection, need for dialysis, need for emergency bypass surgery, need for surgery, need for blood transfusion, myocardial infarction, CVA, anaphylaxis, arrhythmia. I have also explained to him that he is very high-risk for needing temporary or permanent dialysis, would estimate the risk at well over 75%. The patient understands this and wishes to proceed with left heart catheterization. He has not received Xarelto today. The plan is discussed with his nurse and I explained the risks to his nurse as well. 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 MD KRISH Paul/TLL /9:13 AM /9:19 AM
[2016-06-19] MEDS: BUMETANIDE INJ 1 MG/4 ML VIAL IV PUSH SCH ×2 (09:37→17:25)
[2016-06-19] MEDS: ASPIRIN 81 MG CHEW TAB CHEW SCH (09:37)
[2016-06-19] MEDS ORDERED: MIDAZOLAM HCL 2 MG/2 ML VIAL ONE (10:29)
[2016-06-19] MEDS ORDERED: HEPARIN SODIUM - IV 10,000 UNITS/10 ML VIAL ONE (11:12)
[2016-06-19] MEDS ORDERED: ADENOSINE STRESS TEST INJ 90 MG/30 ML VIAL ONE (11:12)
[2016-06-19] MEDS ORDERED: SODIUM NITROPRUSSIDE 50 MG/2 ML VIAL ONE (11:29)
[2016-06-19] MEDS ORDERED: IOHEXOL 350 MG/ML 100 ML BTL (for Cath Lab) OTHER ONE (11:30)
[2016-06-19] MEDS: MILRINONE 20 MG/NS 100 ML (0.375 mcg/kg/min) IV SCH ×6 (11:40→23:54)
[2016-06-19] MEDS ORDERED: MISC INFORMATION XX ONE (11:45)
[2016-06-19] MEDS ORDERED: SODIUM CHLORIDE 0.9% FLUSH 5 ML FLUSH IVF PRN (11:45)
[2016-06-19] MEDS ORDERED: NS IV SCH ×4 (12:00)
[2016-06-19] MEDS ORDERED: MILRINONE IV SCH ×4 (12:00)
[2016-06-19] MEDS ORDERED: MILRINONE 20 MG/NS 100 ML (0.375 mcg/kg/min) IV SCH ×2 (12:00)
--- NOTE | 2016-06-19 13:05 | PD.CONS ---
HPI Service Nephrology Consult Requested By Dr. Cordero Reason for Consult CKD Primary Care Physician Unknown History of Present Illness Patient is 60-year-old the white male with history of diabetes, hypertension, chronic kidney disease, coronary artery disease, Obesity, who had increasing shortness of breath and underwent heart catheterization because of angina he was found to have elevated left ventricular filling pressures and coronary artery disease the patient has low ejection fraction as well, his creatinine is 2.8. He states that his baseline GFR is around 23 and has stage IV kidney disease follows with nephrology [facility] in [place]. Review of Systems Constitutional: COMPLAINS OF: Diaphoretic episodes, Fatigue Respiratory: COMPLAINS OF: Shortness of breath Cardiovascular: COMPLAINS OF: Dyspnea on Exertion, Lower Extremity Edema Psychiatric: COMPLAINS OF: Anxiety Past Family Social History Allergies: Coded Allergies: No Known Allergies (Unverified , 06/18/16) Past Medical History Congestive heart failure Coronary artery disease Diabetes mellitus Hypertension Hyperlipidemia Chronic kidney disease stage IV History of CVA with residual right-sided weakness GERD Past Surgical History Vascular bypass of left lower extremity Reported Medications Reported Meds & Active Scripts Active Reported Atorvastatin (Atorvastatin Calcium) 80 Mg Tab 80 Mg PO HS Flomax (Tamsulosin HCl) 0.4 Mg Cap 0.4 Mg PO HS Aspirin Children's (Aspirin) 81 Mg Chew 81 Mg CHEW DAILY Xarelto (Rivaroxaban) 15 Mg Tab 15 Mg PO DAILY Iron (Ferrous Sulfate) 325 Mg Tab 325 Mg PO BIDPC Take after a meal. Lantus Solostar Pen Inj (Insulin Glargine) 300 Unit/3 Ml Pen 55 Units SQ HS Humalog Kwikpen Pen Inj (Insulin Lispro (Human) Inj) 300 Unit/3 Ml Pen 20 Units SQ ACHS Bumex (Bumetanide) 2 Mg Tab 2 Mg PO BID Active Ordered Medications Current Medications Medications (Trade) Dose Ordered Sig/Tommy Route Start Time Stop Time Status Last Admin (Cardene Inj/NS 250 ml Inj) 260 ml @ 0 mls/hr TITRATE IV 06/18/16 04:30 06/19/16 05:34 (NS Flush) 2 ml UNSCH PRN FLUSH 06/18/16 06:30 (NS Flush) 2 ml BID FLUSH 06/18/16 09:00 06/19/16 09:00 (Zofran Inj) 4 mg Q6H PRN IVP 06/18/16 06:30 (Dulcolax Supp) 10 mg DAILY PRN [place] 06/18/16 06:30 (Tylenol) 650 mg Q6H PRN PO 06/18/16 06:30 ([place] 5-325 Mg) 1 tab Q4H PRN PO 06/18/16 06:30 (Morphine Inj) 2 mg Q3H PRN IV 06/18/16 06:30 06/18/16 19:10 (D50w (Vial) Inj) 25 ml UNSCH PRN IV PUSH 06/18/16 06:30 (Glucagon Inj) 1 mg UNSCH PRN OTHER 06/18/16 06:30 (Aspirin Chew) 81 mg DAILY CHEW 06/18/16 09:00 06/19/16 09:37 (Lipitor) 80 mg HS PO 06/18/16 21:00 06/18/16 20:59 (Ferrous Sulfate) 325 mg BIDPC PO 06/18/16 09:00 06/18/16 17:50 (Flomax) 0.4 mg HS PO 06/18/16 21:00 06/18/16 20:58 Patient Own Medication PT OWN MED: Insu... HS SQ 06/18/16 21:00 Hold (Bumex Inj) 1 mg BID@09,18 IV PUSH 06/18/16 09:00 06/19/16 09:37 (KCl) 10 meq DAILY PO 06/19/16 09:00 (Catapres) 0.1 mg Q6H PRN PO 06/18/16 13:00 (Nitrostat Sl) 0.3 mg Q5M PRN SL 06/18/16 20:30 (NS Flush) 2 ml UNSCH PRN IVF 06/19/16 11:45 (NS Flush) 2 ml BID IVF 06/19/16 21:00 Aspirin 81 mg 81 mg DAILY PO 06/20/16 09:00 (Primacor Inj/NS Inj) 100 ml @ 15.97 mls/ hr Q6H16M IV 06/19/16 12:00 06/19/16 11:40 Family History Mother has diabetes, brother has Crohn's disease Social History Smoke cigarettes 17 years ago quit, alcohol use occasional Physical Exam Vital Signs Vital Signs Date Time Temp Pulse Resp B/P Pulse Ox O2 Delivery O2 Flow Rate FiO2 06/19/16 12:42 99 143/63 06/19/16 12:41 97.9 99 22 146/77 94 06/19/16 12:36 95 Non-Rebreather 8.00 06/19/16 07:32 97 Nasal Cannula 4.00 06/19/16 07:30 98.4 89 20 141/76 97 06/19/16 07:30 97 Nasal Cannula 4.00 06/19/16 07:00 90 06/19/16 04:30 98 Nasal Cannula 5.00 06/19/16 04:00 98 Nasal Cannula 4.00 06/19/16 03:30 97.2 85 22 134/75 99 06/19/16 03:30 98 Nasal Cannula 3.00 06/19/16 03:20 83 06/19/16 00:00 83 06/19/16 00:00 99 3.00 06/18/16 23:30 98.1 85 20 149/87 99 06/18/16 20:00 98 Partial Non-Rebreather 10.00 Non-Rebreather 06/18/16 19:56 99 Partial Rebreather 10.00 06/18/16 19:30 98.7 98 22 149/82 99 06/18/16 19:30 20 06/18/16 19:15 99 Non-Rebreather 15.00 06/18/16 19:10 100 06/18/16 19:00 94 Nasal Cannula 2.00 06/18/16 18:15 98.5 90 22 157/78 94 06/18/16 18:15 96 06/18/16 16:30 86 20 157/73 100 Nasal Cannula 2 06/18/16 14:20 98.3 81 22 146/73 98 Nasal Cannula 2 06/18/16 13:03 80 20 153/83 100 Nasal Cannula 2 Physical Exam GENERAL: Well-nourished, well-developed patient. SKIN: Warm and dry. HEAD: Normocephalic. EYES: No scleral icterus. No injection or drainage. NECK: Supple, trachea midline. No JVD or lymphadenopathy. CARDIOVASCULAR: Regular rate and rhythm without murmurs, gallops, or rubs. RESPIRATORY: Breath sounds diminished at bases GASTROINTESTINAL: Abdomen soft, non-tender, distended. EXTREMITIES: No cyanosis, 3+ edema. NEUROLOGICAL: Awake, alert, and oriented x 3. Non-focal. Laboratory Laboratory Tests Test 06/18/16 06/19/16 16:00 05:30 Sodium Level 141 142 Potassium Level 3.5 3.7 Chloride Level 106 108 Carbon Dioxide Level 26.1 23.8 Anion Gap 9 10 Blood Urea Nitrogen 42 44 Creatinine 3.00 2.85 Estimat Glomerular Filtration 21 23 Rate Random Glucose 159 155 Calcium Level 8.5 8.6 Troponin I 6.10 White Blood Count 5.7 Red Blood Count 3.14 Hemoglobin 8.4 Hematocrit 25.7 Mean Corpuscular Volume 81.8 Mean Corpuscular Hemoglobin 26.9 Mean Corpuscular Hemoglobin 32.8 Concent Red Cell Distribution Width 14.1 Platelet Count 264 Mean Platelet Volume 8.5 Neutrophils (%) (Auto) 73.6 Lymphocytes (%) (Auto) 12.6 Monocytes (%) (Auto) 10.5 Eosinophils (%) (Auto) 2.1 Basophils (%) (Auto) 1.2 Neutrophils # (Auto) 4.2 Lymphocytes # (Auto) 0.7 Monocytes # (Auto) 0.6 Eosinophils # (Auto) 0.1 Basophils # (Auto) 0.1 CBC Comment DIFF FINAL Differential Comment Total Bilirubin 0.3 Aspartate Amino Transf 56 (AST/SGOT) Alanine Aminotransferase 27 (ALT/SGPT) Alkaline Phosphatase 95 B-Type Natriuretic Peptide 336 Total Protein 6.5 Albumin 2.4 Result Diagram: 06/19/1652906/19/16529 Imaging Last Impressions Chest X-Ray 06/18/16 0416 Signed Impressions: Service Date/Time: Saturday, June 18, 2016 04:50 - CONCLUSION: Mild basilar parenchymal opacities. Enrrique Dickson MD Assessment and Plan Problem List: (1) Chronic kidney disease, stage 4 (severe) Plan: Patient has advanced kidney disease and underwent emergent heart catheterization he has a high end diastolic filling pressures and we will need to diurese him up for a Rice catheter in Bumex drip when necessary metolazone, monitor his kidney functions that he has advanced kidney disease If above measures fail that he may need to hemodialysis for ultrafiltration will monitor this situation closely (2) Hypertensive emergency Plan: Blood pressure has improved (3) Hypertension (4) Pulmonary edema Plan: Patient needs diuresis he does have a heart catheterization which showed the coronary artery disease and high filling pressures, all vessels have some degree of obstruction, discussed with Dr. Pierre for possibility of dialysis (5) Diabetes Plan: Monitor blood glucose (6) NSTEMI (non-ST elevated myocardial infarction) Problem Qualifiers (1) Pulmonary edema: Qualified Code: J81.0 - Acute pulmonary edema Lucero Purvis MD Jun 19, 2016 13:05
[2016-06-19] MEDS ORDERED: PRAM1TAB PO (13:13)
[2016-06-19] MEDS ORDERED: DRIS50002 PO (13:13)
[2016-06-19] MEDS ORDERED: AMIO200T PO (13:13)
[2016-06-19] MEDS ORDERED: LEVO50TA4 PO (13:13)
[2016-06-19] MEDS ORDERED: HYDR25TA35 PO (13:13)
[2016-06-19] MEDS ORDERED: METO5TAB3 PO (13:18)
[2016-06-19] MEDS ORDERED: CENT50TA PO (13:18)
[2016-06-19] MEDS: METOLAZONE 5 MG TAB PO SCH (14:10)
[2016-06-19] MEDS: MORPHINE SULFATE 4 MG/ML INJ IV PRN ×4 (14:32→20:55)
--- NOTE | 2016-06-19 14:37 | EKG ---
Date Performed: 06/18/2016 Time Performed: 16:23:32 PTAGE: 60 years EKG: Sinus rhythm POSSIBLE LEFT ATRIAL ENLARGEMENT NONSPECIFIC ST & T-WAVE ABNORMALITY BORDERLINE ECG Compared to prio r tracing no significant change PREVIOUS TRACING : 06/18/2016 12.21 DOCTOR: Sammy Pierre Interpretating Date/Time 06/19/2016 14:35:50
--- NOTE | 2016-06-19 14:37 | EKG ---
Date Performed: 06/18/2016 Time Performed: 12:21:53 PTAGE: 60 years EKG: Sinus rhythm POSSIBLE LEFT ATRIAL ENLARGEMENT ST DEVIATION AND MODERATE T-WAVE ABNORMALITY, CONSIDER LATERAL ISCH EMIA ABNORMAL ECG Compared to prior tracing no significant change PREVIOUS TRACING : 06/18/2016 06.14 DOCTOR: Sammy Pierre Interpretating Date/Time 06/21/2016 06:53:27
[2016-06-19] MEDS ORDERED: BUMETANIDE INJ 100 ML IV SCH (15:00)
[2016-06-19] MEDS ORDERED: NITROGLYCERIN-DEXTROSE INJ 250 ML ONE (15:01)
[2016-06-19 15:20] LABS: HEMATOCRIT 28.4 % (39.0-51.0); REVIEW FLAG FINAL
[2016-06-19] MEDS: NITROGLYCERIN/DEXTROSE 5% 250 ML for chest pain IV SCH ×3 (15:22→23:54)
[2016-06-19] MEDS ORDERED: LORazepam 2 MG/ML VIAL IV PUSH ONE (15:30)
--- NOTE | 2016-06-19 18:37 | RADRPT ---
EXAM DATE/TIME: 06/19/2016 17:51 [place] COMPARISON: No previous studies available for comparison. INDICATIONS : Increased labs. MEDICAL HISTORY : Gastroesophageal reflux disease. Congestive heart failure. Myocardial infarction. Hypercholesterolemi a. Hyperlipidemia. Afib. Diabetes. Hypertension. Chronic kidney disease. Coronary artery disease. Cerebrovascular accident. Anxiety. Prostate problems. Sleep apnea. SURGICAL HISTORY : Vascular bypass left lower extremity. Toe amputation. ENCOUNTER: Initial ACUITY: 1 day PAIN SCORE: 4/10 LOCATION: Bilateral flank MEASUREMENTS: RIGHT KIDNEY: 11.1 x 6.2 x 5.2 cm LEFT KIDNEY: 11.1 x 6.4 x 6.0 cm FINDINGS: RIGHT KIDNEY: Renal cortex is normal in thickness and echotexture. No hydronephrosis, stone, or mass. LEFT KIDNEY: Renal cortex is normal in thickness and echotexture. No hydronephrosis, stone, or mass. BLADDER: Rice catheter within the urinary bladder. CONCLUSION: Normal examination. Roderick Milner MD on June 19, 2016 at 18:35 Board Certified Radiologist. This report was verified electronically.
[2016-06-19] MEDS: TAMSULOSIN HCL 0.4 MG CAP PO SCH (20:47)
[2016-06-19] MEDS: ATORVASTATIN 80 MG TAB PO SCH (20:47)
[2016-06-19] MEDS: SODIUM CHLORIDE 0.9% FLUSH 5 ML FLUSH IVF SCH (20:47)
[2016-06-20] VITALS (9 sets, daily range): BP systolic 90–118; BP diastolic 52–72; PULSE 97–113; RESP 18–21; TEMP 97.9–99.1; O2SAT 92–98
[2016-06-20] MEDS ORDERED: RIVAROXABAN 10 MG TAB ONE ×2 (02:29→02:32)
[2016-06-20] MEDS: NITROGLYCERIN/DEXTROSE 5% 250 ML for chest pain IV SCH (02:59)
[2016-06-20 04:23] LABS: AUTOMATED NEUTROPHIL # 6.5 TH/MM3 (1.8-7.7); BASOPHIL # 0.1 TH/MM3 (0-0.2); BASOPHIL % 0.8 % (0.0-2.0); EOSINOPHIL % 0.5 % (0.0-4.0); HEMATOCRIT 24.1 % (39.0-51.0); HEMO FLAGS DIFF FINAL; LYMPH % 7.6 % (9.0-44.0); LYMPHOCYTE # 0.6 TH/MM3 (1.0-4.8); MEAN CELL VOLUME 81.7 FL (80.0-100.0); MEAN CORPUSCULAR HEMOGLOBIN 27.5 PG (27.0-34.0); MEAN CORPUSCULAR HGB CONC 33.7 % (32.0-36.0); MONO % 11.1 % (0.0-8.0); PLATELET COUNT 284 TH/MM3 (150-450); RED BLOOD COUNT 2.95 MIL/MM3 (4.50-5.90); RED CELL DISTRIBUTION WIDTH 13.7 % (11.6-17.2); WHITE BLOOD COUNT 8.2 TH/MM3 (4.0-11.0)
[2016-06-20 04:50] LABS: BICARBONATE 21.3 MEQ/L (21.0-32.0); HDL CHOLESTEROL 33.9 MG/DL (40.0-60.0)
[2016-06-20 05:14] LABS: CKMB 56.4 NG/ML (0.5-3.6)
[2016-06-20] MEDS: MILRINONE 20 MG/NS 100 ML (0.375 mcg/kg/min) IV SCH ×6 (06:48→20:02)
[2016-06-20] MEDS: INSULIN ASPART SUPPLEMENTAL SCALE SQ SCH ×4 (07:00→20:30)
--- NOTE | 2016-06-20 07:57 | MA ---
cc: KENN ANDRADE M.D. DATE: 06/20/2015 PROCEDURE 1. Right heart catheterization. 2. Left heart catheterization. 3. Left ventriculography. 4. Coronary angiography. 5. FFR of the proximal left circumflex vessel. INDICATIONS Non-STEMI, cardiomyopathy, decompensated congestive heart failure, coronary artery disease. DISCUSSION I explained to the patient that he was very high-risk for needing temporary or permanent dialysis prior to procedure. The patient understood and agreed to proceed anyway. He was pre-hydrated with a liter of normal saline. Right heart catheterization was performed first with the following findings: Pulmonary capillary wedge pressure was 48/56/41. PA pressure 59/34/48. PA sat was 57.5% on two liters oxygen via nasal cannula. Femoral artery sat was 94.3%. RV pressure 80/20/29. RA pressure 27/25-22. RA sat 60.4%. Cardiac output by Дмитрий was 7.7 liters per minute. Cardiac index by Дмитрий was 3 liters per minute. The left heart catheterization was then performed with a 4-Bahamian JR4 and JL4 catheter. LV pressures were 80/35-45. Ejection fraction was 40-45%. The right coronary artery is large and dominant. There is mild to moderate diffuse disease in the proximal to midsegment up to 30-40% angiographically. The proximal right posterolateral artery is a large vessel with mild disease in the proximal segment up to 10-20% angiographically. It bifurcates. The more medial branch has a proximal 50% stenosis. The right PDA has mild to moderate diffuse disease in the proximal to midsegment up to 20-30% angiographically. The proximal right coronary artery has a focal 50% stenosis. The left main coronary has no significant disease angiographically. The left circumflex vessel has a long proximal 60% stenosis. This supplies a moderate size marginal vessel which has a subtotal occlusion up to 95% in the mid to distal segment. The LAD has a 50% proximal stenosis. It non-transapical. Beyond the first diagonal artery it tapers from a 2.75 vessel to about a 2.0 vessel. After the second diagonal artery it is a 1 mm vessel. The first diagonal artery is subtotally occluded in the mid to distal segment with probably [id number] collaterals to the distal tip of the vessel which is less than 0.5 mm in diameter. The second diagonal artery is also 1.0 to 1.5 mm vessel with a mid 95% stenosis. I exchanged the 4-Bahamian sheath for a 6-Bahamian sheath. Heparin was given with an ACT 251. A 6-Bahamian XB 4.0 guide and [place] pressure wire was placed into the left main coronary artery. The introducer was removed. Manifold and guide catheter were thoroughly flushed with normal saline. Equalization was then performed. The wire was then passed across the proximal left circumflex vessel stenosis into the distal obtuse marginal vessel. iFR was 0.97. The patient was infused with 140 mcg/kg per minute of adenosine for three minutes. Maximal FFR was 0.96. I also infused 200 mcg of intracoronary Nipride. Again FFR was 0.96. The patient was symptomatic with adenosine. CONCLUSIONS 1. Cardiomyopathy with decompensated congestive heart failure, markedly elevated LVEDP, and pulmonary capillary wedge pressure as detailed above. 2. Mild aortic stenosis with pullback maximal gradient of 24 mmHg. 3. Systolic dysfunction with EF of 40-45%. 4. Severe mid to distal diagonal and possible LAD disease as detailed above. 5. 60% left circumflex stenosis with FFR 0.97. 6. Will start milrinone drip. 7. Note, I used a total of 38 cc of contrast for the entire procedure. Will also get a stat renal consult. 8. Will also consult with the [facility] for transfer and consideration of LVAD and/or heart transplant. The patient's condition is guarded. MD KRISH Paul/CHANDRAKANT /11:45 AM /7:40 AM
[2016-06-20] MEDS: BUMETANIDE INJ 1 MG/4 ML VIAL IV PUSH SCH (08:47)
[2016-06-20] MEDS: ASPIRIN 81 MG CHEW TAB PO SCH (08:48)
[2016-06-20] MEDS: POTASSIUM CHLORIDE 10 MEQ CAP PO SCH (08:48)
[2016-06-20] MEDS: FERROUS SULFATE 325 MG (65 MG ELEMENTAL IRON) TAB PO SCH ×2 (08:49→18:25)
[2016-06-20] MEDS: METOLAZONE 5 MG TAB PO SCH (08:50)
[2016-06-20] MEDS: SODIUM CHLORIDE 0.9% FLUSH 5 ML FLUSH IVF SCH ×2 (08:50→21:00)
--- NOTE | 2016-06-20 09:12 | HHI.PR ---
Subjective Remarks Follow up NSTEMI, hypertension. The patient states that he feels better today- pain free. S/P cardiac cath 06/19/2016. Patient on Ventimask 50%. Denies feeling SOB or chest pain, N/V/D/C. Objective Vitals Vital Signs Date Time Temp Pulse Resp B/P Pulse Ox O2 Delivery O2 Flow Rate FiO2 06/20/16 07:21 98 Venturi Mask 50 06/20/16 06:03 95 Venturi Mask 7.00 50 06/20/16 03:00 94 06/20/16 03:00 99 06/20/16 03:00 97.9 99 18 103/66 94 06/19/16 23:00 97.8 105 18 113/67 94 06/19/16 23:00 105 06/19/16 23:00 94 06/19/16 19:57 97 Partial Rebreather 12.00 06/19/16 19:00 98 Partial Non-Rebreather 10.00 06/19/16 19:00 97.6 116 18 113/64 98 06/19/16 19:00 116 06/19/16 16:03 97.5 111 20 116/63 96 06/19/16 16:00 111 06/19/16 15:35 92 Non-Rebreather 10.00 06/19/16 15:35 97.5 109 22 110/56 94 06/19/16 12:42 99 143/63 06/19/16 12:41 97.9 99 22 146/77 94 06/19/16 12:36 95 Non-Rebreather 8.00 06/19/16 12:30 100 I/O 06/19/16 06/19/16 06/19/16 06/20/16 06/20/16 06/20/16 07:00 15:00 23:00 07:00 15:00 23:00 Intake Total 1788 ml 1101 ml 1602 ml Output Total 575 ml 715 ml 400 ml Balance 1213 ml 386 ml 1202 ml Intake Oral 720 ml 480 ml 630 ml IV Total 1068 ml 621 ml 972 ml Output Urine Total 575 ml 715 ml 400 ml # Bowel Movements 0 1 Result Diagram: 06/20/16 0403 06/20/16 040 Objective Remarks General: No acute distress. Sitting up in a chair. Heart: Regular rate and rhythm. No murmur. Lungs: few scattered expiratory wheezes. Breathing is nonlabored. Abdomen: Soft, nontender, nondistended. Extremities: BLE edema and erythema with dried scabbed areas to RLE- improved Psych: Alert and oriented. Procedures None A/P Problem List: (1) Acute respiratory failure ICD Code: J96.00 Status: Acute (2) Elevated troponin I level ICD Code: R74.8 Status: Acute (3) NSTEMI (non-ST elevated myocardial infarction) ICD Code: I21.4 Status: Acute (4) Hypertensive emergency ICD Code: I16.1 Status: Acute (5) Pulmonary edema ICD Code: J81.1 Status: Acute (6) Hypertension ICD Code: I10 Status: Chronic (7) Chronic kidney disease, stage 4 (severe) ICD Code: N18.4 Status: Acute Assessment and Plan 1. CHF exacerbation: Patient presented with acute dyspnea likely related to fluid overload. Continue diuresis-currently on Bumex drip. cardiac cath 06/19/16 showed EF 40-45%. Cards started Milrinone drip. 2. Acute respiratory failure: Secondary to above. Improved. Patient required BiPAP initially and now on 50% Ventimask. Continue supplemental oxygen. Wean as tolerated 3. Diabetes mellitus: Monitor Accu-Cheks and cover with sliding scale insulin. Continue Levemir. 4. Chronic kidney disease stage IV: Monitor BUN and creatinine, especially with increased diuresis. Consult nephrology, appreciate input. BUN/creatinine increased after cardiac cath defer possible HD to nephrology. repeat BMP in AM 5. Hypertension: Blood pressure was significantly elevated upon presentation to the ER. improved continue to monitor 6. Hyperlipidemia: Continue statin. 7. NSTEMI: Appreciate cardiology recommendations. Cardiac catheterization done , showed EF 40-45% Cards started Milrinone drip.. Beta-blockers on hold due to decompensated CHF. ROBERT-I on hold secondary to renal failure. Continue aspirin, statin.- awaiting further recommendation per cardiology 8. DVT prophylaxis: Xarelto. Discussed with patient and RN Written by Rylee Hansen, acting as scribe for Dr. Cordero on 06/20/16 at 09:11. Attending Statement The documentation accurately reflects the work performed [id number] by me on at 09:11. Problem Qualifiers (1) Pulmonary edema: Qualified Code: J81.0 - Acute pulmonary edema Rylee Hansen Jun 20, 2016 09:12 Otoniel Cordero MD Jun 20, 2016 09:42
[2016-06-20] MEDS: RIVAROXABAN 15 MG TAB PO SCH ×2 (09:20)
[2016-06-20] MEDS ORDERED: SODIUM CHLOR 0.9% 1000 ML INJ 1,000 ML IV PRN ×2 (10:08)
[2016-06-20] MEDS ORDERED: ONDANSETRON HCL 4 MG/2 ML VIAL IV PRN (10:15)
[2016-06-20] MEDS ORDERED: SODIUM CHLORIDE 0.9% FLUSH 5 ML FLUSH IVF PRN ×2 (10:15→13:30)
[2016-06-20] MEDS ORDERED: MANNITOL 12.5 GM/50 ML VIAL IV PRN (10:15)
[2016-06-20] MEDS ORDERED: cloNIDine HCL 0.1 MG TAB PO PRN (10:15)
[2016-06-20] MEDS ORDERED: ALBUMIN HUMAN 25% 25 GM/100 ML BAGP IV PRN (10:15)
[2016-06-20] MEDS ORDERED: ACETAMINOPHEN 325 MG TAB PO PRN (10:15)
[2016-06-20] MEDS ORDERED: GELATIN 12 MM/7 MM FOAM TOP PRN (10:15)
[2016-06-20] MEDS ORDERED: NITROGLYCERIN 0.4 MG SL 25 TABS/BTL SL PRN (10:15)
[2016-06-20] MEDS ORDERED: HEPARIN SODIUM - IV 10,000 UNITS/10 ML VIAL IVF PRN ×2 (10:15→13:30)
--- NOTE | 2016-06-20 10:15 | HHI.NPPN ---
Subjective History of Present Illness 60 year old male with CHF, CKD Review of Systems General Constitutional: Fatigue Objective Data Data 06/19/16 06/20/16 19:00 07:00 Intake Total 1101 ml 1602 ml Output Total 715 ml 400 ml Balance 386 ml 1202 ml Intake Oral 480 ml 630 ml IV Total 621 ml 972 ml Output Urine Total 715 ml 400 ml # Bowel Movements 1 Vital Signs Date Time Temp Pulse Resp B/P Pulse Ox O2 Delivery O2 Flow Rate FiO2 06/20/16 07:21 98 Venturi Mask 50 06/20/16 07:00 98 06/20/16 07:00 98.2 97 20 113/57 94 06/20/16 07:00 97 Venturi Mask 8.00 06/20/16 06:03 95 Venturi Mask 7.00 50 06/20/16 03:00 94 06/20/16 03:00 99 06/20/16 03:00 97.9 99 18 103/66 94 06/19/16 23:00 97.8 105 18 113/67 94 06/19/16 23:00 105 06/19/16 23:00 94 06/19/16 19:57 97 Partial Rebreather 12.00 06/19/16 19:00 98 Partial Non-Rebreather 10.00 06/19/16 19:00 97.6 116 18 113/64 98 06/19/16 19:00 116 06/19/16 16:03 97.5 111 20 116/63 96 06/19/16 16:00 111 06/19/16 15:35 92 Non-Rebreather 10.00 06/19/16 15:35 97.5 109 22 110/56 94 06/19/16 12:42 99 143/63 06/19/16 12:41 97.9 99 22 146/77 94 06/19/16 12:36 95 Non-Rebreather 8.00 06/19/16 12:30 100 -: 06/20/16 0403 06/20/16 0403 Physical Exam General Appearance: Well Developed, Well Nourished Neck Neck Exam: Neck Supple Pulmonary Resp Exam: Decreased Bases, Diminished Breath Sounds Cardiology CV Exam: Regular Gastrointestinal/Abdomen GI Exam: Soft, Distended Extremeties Extremities Exam: Pitting Edema, Dependent Edema Assessment/Plan Problem List: (1) Chronic kidney disease, stage 4 (severe) Plan: Patient has advanced kidney disease and underwent emergent heart catheterization Did not respond well to aggressive diuresis need Vascath and hemodialysis procedure explained he has failed conservative approach CHF Worse check urine to protein ratio agreeable to hemodialysis (2) Hypertensive emergency Plan: Blood pressure has improved (3) Hypertension (4) Pulmonary edema Plan: Patient needs diuresis he does have a heart catheterization which showed the coronary artery disease and high filling pressures, all vessels, discussed with Dr. Pierre for possibility of dialysis (5) Diabetes Plan: Monitor blood glucose (6) NSTEMI (non-ST elevated myocardial infarction) Problem Qualifiers (1) Pulmonary edema: Qualified Code: J81.0 - Acute pulmonary edema Lucero Purvis MD Jun 20, 2016 10:15
--- NOTE | 2016-06-20 10:21 | EKG ---
Date Performed: 06/19/2016 Time Performed: 14:49:02 PTAGE: 60 years EKG: Sinus tachycardia. Inferior/lateral ST-T changes may be due to myocardial ischemia Abnormal ECG Since PREVIOUS TRACING , no significant change noted PREVIOUS TRACING 06/18/2016 16.23.32 DOCTOR: Clifford Benitez Interpretating Date/Time 06/20/2016 10:19:04
--- NOTE | 2016-06-20 13:21 | PD.RAD ---
Post Procedure Progress Note Pre Procedure Diagnosis: (1) Pulmonary edema Post Procedure Diagnosis: (1) Pulmonary edema Procedure Date: Jun 20, 2016 Supervising Radiologist: Clifford Ugalde Proceduralist/Assist: Eh Reyes, RT(R), Sravanthi Todd RT(R)() Anesthesia: Local Plan of Activity Patient to Unit: Nursing Unit Patient Condition: Fair See PACS Report for procedural detail/treatment Central Venous Access Device Procedure 1 Right Internal Jugular Hemodialysis Catheter Non-Tunneled Placement dual lumen Clifford Ugalde MD Jun 20, 2016 13:21
--- NOTE | 2016-06-20 14:00 | RADRPT ---
EXAM DATE/TIME: 06/20/2016 13:29 [facility] COMPARISON: CHEST SINGLE AP, June 18, 2016, 4:50. INDICATIONS : Status post cemtral line placement. MEDICAL HISTORY : Hypertension. Diabetes mellitus type II. SURGICAL HISTORY : None. ENCOUNTER: Initial ACUITY: 3 days PAIN SCORE: 0/10 LOCATION: chest FINDINGS: A right internal jugular Vas-Cath has been inserted and is in good position. Exam was performed during expiration causing accentuation of the interstitial vascular markings. Heart is moderately enlarged. There is no skin pneumothorax. CONCLUSION: Interval placement of right internal jugular Vas-Cath without evidence of pneumothorax. Expiratory exam in which mild congestion may be present. Zaire Sims MD on June 20, 2016 at 13:58 Board Certified Radiologist. This report was verified electronically.
--- NOTE | 2016-06-20 14:16 | PD.CARD.PN ---
Subjective Subjective Remarks alert in nad Objective Vital Signs / I&O Vital Signs Date Time Temp Pulse Resp B/P Pulse Ox O2 Delivery O2 Flow Rate FiO2 06/20/16 11:00 98 06/20/16 11:00 99.0 98 20 117/68 95 06/20/16 11:00 95 Nasal Cannula 6.00 06/20/16 07:21 98 Venturi Mask 50 06/20/16 07:00 98 06/20/16 07:00 98.2 97 20 113/57 94 06/20/16 07:00 97 Venturi Mask 8.00 06/20/16 06:03 95 Venturi Mask 7.00 50 06/20/16 03:00 94 06/20/16 03:00 99 06/20/16 03:00 97.9 99 18 103/66 94 06/19/16 23:00 97.8 105 18 113/67 94 06/19/16 23:00 105 06/19/16 23:00 94 06/19/16 19:57 97 Partial Rebreather 12.00 06/19/16 19:00 98 Partial Non-Rebreather 10.00 06/19/16 19:00 97.6 116 18 113/64 98 06/19/16 19:00 116 06/19/16 16:03 97.5 111 20 116/63 96 06/19/16 16:00 111 06/19/16 15:35 92 Non-Rebreather 10.00 06/19/16 15:35 97.5 109 22 110/56 94 I/O 06/19/16 06/19/16 06/19/16 06/20/16 06/20/16 06/20/16 07:00 15:00 23:00 07:00 15:00 23:00 Intake Total 1788 ml 1101 ml 1602 ml Output Total 575 ml 715 ml 400 ml Balance 1213 ml 386 ml 1202 ml Intake Oral 720 ml 480 ml 630 ml IV Total 1068 ml 621 ml 972 ml Output Urine Total 575 ml 715 ml 400 ml # Bowel Movements 0 1 Laboratory GENERAL: SKIN: Warm and dry. HEAD: Normocephalic. EYES: No scleral icterus. No injection or drainage. NECK: Supple, trachea midline. No JVD or lymphadenopathy. CARDIOVASCULAR: Regular rate and rhythm without murmurs, gallops, or rubs. RESPIRATORY: Breath sounds equal bilaterally. No accessory muscle use. GASTROINTESTINAL: Abdomen soft, non-tender, nondistended. MUSCULOSKELETAL: No cyanosis, or edema. BACK: Nontender without obvious deformity. No CVA tenderness. Laboratory Tests Test 06/19/16 06/20/16 14:32 04:03 Hemoglobin 9.3 GM/DL 8.1 GM/DL Hematocrit 28.4 % 24.1 % White Blood Count 8.2 TH/MM3 Red Blood Count 2.95 MIL/MM3 Mean Corpuscular Volume 81.7 FL Mean Corpuscular Hemoglobin 27.5 PG Mean Corpuscular Hemoglobin 33.7 % Concent Red Cell Distribution Width 13.7 % Platelet Count 284 TH/MM3 Mean Platelet Volume 8.3 FL Neutrophils (%) (Auto) 80.0 % Lymphocytes (%) (Auto) 7.6 % Monocytes (%) (Auto) 11.1 % Eosinophils (%) (Auto) 0.5 % Basophils (%) (Auto) 0.8 % Neutrophils # (Auto) 6.5 TH/MM3 Lymphocytes # (Auto) 0.6 TH/MM3 Monocytes # (Auto) 0.9 TH/MM3 Eosinophils # (Auto) 0.0 TH/MM3 Basophils # (Auto) 0.1 TH/MM3 CBC Comment DIFF FINAL Differential Comment Sodium Level 138 MEQ/L Potassium Level 4.0 MEQ/L Chloride Level 105 MEQ/L Carbon Dioxide Level 21.3 MEQ/L Anion Gap 12 MEQ/L Blood Urea Nitrogen 50 MG/DL Creatinine 3.81 MG/DL Estimat Glomerular Filtration 16 ML/MIN Rate Random Glucose 253 MG/DL Calcium Level 7.7 MG/DL Phosphorus Level 4.0 MG/DL Total Creatine Kinase 551 U/L Creatine Kinase MB 56.4 NG/ML Creatine Kinase MB % 10.2 % Triglycerides Level 86 MG/DL Cholesterol Level 93 MG/DL LDL Cholesterol 42 MG/DL HDL Cholesterol 33.9 MG/DL Cholesterol/HDL Ratio 2.74 RATIO Assessment and Plan Problem List: (1) Acute respiratory failure (2) Acute renal failure (3) Elevated troponin I level (4) Shortness of breath (5) Pulmonary edema (6) Hypertension (7) NSTEMI (non-ST elevated myocardial infarction) (8) Chronic kidney disease, stage 4 (severe) (9) Hypertensive emergency (10) Diabetes (11) CAD (coronary artery disease) Assessment and Plan 1.) chf/cad/crf/arf - suspect volume overlaod more due to cri/arf, not responding eell to diuresis, bumex drip, will require dialysis for volume management, attemptimg transfer to [facility] for heart transplant/lvad eval, continue aspirin, xarelto, diuretics per Dr Purvis, d/w nurse and patient and case management Problem Qualifiers (1) Pulmonary edema: Qualified Code: J81.0 - Acute pulmonary edema Sammy Pierre MD Jun 20, 2016 14:16
--- NOTE | 2016-06-20 15:11 | RADRPT ---
EXAM DATE/TIME: 06/20/2016 00:00 [facility] COMPARISON: No previous studies available for comparison. INDICATIONS : Patient presents with chronic renal failure in need of dialysis catheter placement. MEDICAL HISTORY : Congestive heart failure Coronary artery disease Diabetes mellitus Hypertension Hyperlipidemia Chronic kidney disease stage III History of CVA with residual right-sided weakness GERD Past Surgical History Vascular bypass of left lower extremity SURGICAL HISTORY : Congestive heart failure Coronary artery disease Diabetes mellitus Hypertension Hyperlipidemia Chronic kidney disease stage III History of CVA with residual right-sided weakness GERD Past Surgical History Vascular bypass of left lower extremity ENCOUNTER: Initial ACUITY: 3 days PAIN SCORE: 0/10 LOCATION: N/A IMAGE SERIES: 0 ACCESS: Right internal jugular vein DEVICE(S): 1.) 14 Thai dual lumen 15 cm tamycaon catheter TECH NOTE: Portable chest xray obtained to check for placement.KRISSY MURRAY MR#:[id number] Exam Dt /Desc: June 20, 2016TEMP DIALYSIS CATHETER PLCMT W/US, RIGHT PROCEDURE : 1. Ultrasound guided venipuncture. 2. Fluoroscopic guidance. 3. Central line placement. The risks, benefits and alternatives to the procedure were explained and verbal and written consent w as obtained. The site was prepped in sterile fashion. Full sterile technique was used, including ca p, mask, sterile gloves and gown and a large sterile sheet. Hand hygiene and 2% chlorhexidine prep w as utilized per protocol for cutaneous antisepsis with appropriate dry time for site. The skin and subcutaneous tissues were infiltrated with local anesthetic solution. A suitable site a meri the vein was selected with ultrasound and fluoroscopic guidance. A small incision was made. Th e vein was accessed under direct ultrasound visualization using the micropuncture technique. The latasha ropuncture set was exchanged for a 0.035 wire. The tract was dilated. The catheter was advanced int o position under direct fluoroscopic visualization. The catheter was fixed in place with suture and a sterile dressing was applied. The patient tolerated the procedure well and there were no complications. CONCLUSION: Uncomplicated line placement as above. Clifford Ugalde MD on June 20, 2016 at 15:10 Board Certified Radiologist. This report was verified electronically.
[2016-06-20] MEDS: HEPARIN SODIUM - IV 10,000 UNITS/10 ML VIAL PRN (16:42)
[2016-06-20] MEDS: EPOETIN ALFA 10,000 UNITS/ML VIAL IV PRN (16:43)
[2016-06-20] MEDS: GENTAMICIN SULFATE (DIALYSIS USE ONLY) 20 MG/2 ML VIAL IV PRN (16:43)
[2016-06-20] MEDS: SODIUM CHLOR 0.9% 1000 ML INJ 1,000 ML IV PRN (16:43)
[2016-06-20] MEDS ORDERED: GELFOAM SIZE 100 ONE (19:02)
[2016-06-20] MEDS: TAMSULOSIN HCL 0.4 MG CAP PO SCH (20:16)
[2016-06-20] MEDS: ATORVASTATIN 80 MG TAB PO SCH (20:16)
[2016-06-20] MEDS: ACETAMINOPHEN/HYDROcodone 325 MG/5 MG TAB PO PRN (20:17)
[2016-06-20] MEDS: INSULIN GLARGINE SQ SCH (21:00)
[2016-06-21] VITALS (8 sets, daily range): BP systolic 103–126; BP diastolic 60–70; PULSE 101–146; RESP 18–24; TEMP 98.2–99.4; O2SAT 92–97
[2016-06-21] MEDS: MILRINONE 20 MG/NS 100 ML (0.375 mcg/kg/min) IV SCH ×8 (01:39→20:35)
[2016-06-21] MEDS: MORPHINE SULFATE 4 MG/ML INJ IV PRN (02:32)
[2016-06-21] MEDS ORDERED: GELFOAM SIZE 100 ONE (04:19)
[2016-06-21 04:49] LABS: BICARBONATE 22.6 MEQ/L (21.0-32.0); POTASSIUM 4.2 MEQ/L (3.5-5.1)
[2016-06-21] MEDS: INSULIN ASPART SUPPLEMENTAL SCALE SQ SCH ×4 (06:11→22:01)
[2016-06-21] MEDS ORDERED: THROMBIN (TOPICAL) 5,000 UNIT VIAL ONE (09:16)
--- NOTE | 2016-06-21 10:01 | PD.RAD ---
Radiology Note Patient was evaluated for bleeding around Rt vas cath. Bleeding had stopped and no intervention was performed. Subcutaneous injection of thrombin around the catheter will be performed if bleeding resumes. Zaire Sims MD Jun 21, 2016 10:01
--- NOTE | 2016-06-21 10:41 | HHI.PR ---
Subjective Remarks Follow up CHF, NSTEMI, HTN. There was bleeding around the Vas-Cath site today. This was reevaluated by radiology, and there is currently no active bleeding. Patient had some nausea, but that has resolved. Denies chest pain. Does have some shortness of breath at times. Objective Vitals Vital Signs Date Time Temp Pulse Resp B/P Pulse Ox O2 Delivery O2 Flow Rate FiO2 06/21/16 07:50 97 Nasal Cannula 4.00 06/21/16 07:00 95 Nasal Cannula 6.00 Humidified 06/21/16 07:00 99.1 101 24 111/67 95 06/21/16 07:00 101 06/21/16 05:27 141 06/21/16 03:00 95 Nasal Cannula 6.00 Humidified 06/21/16 03:00 104 06/21/16 03:00 99.0 103 20 126/70 92 06/21/16 02:30 92 Nasal Cannula 6.00 Humidified 06/21/16 00:00 108/60 Arterial Line 06/20/16 23:00 113 06/20/16 23:00 98.0 109 21 90/52 97 06/20/16 23:00 97 06/20/16 22:00 94 06/20/16 21:03 92 Nasal Cannula 6.00 06/20/16 19:00 93 Nasal Cannula 6.00 Humidified 06/20/16 19:00 98.1 109 18 102/72 93 06/20/16 19:00 107 06/20/16 15:00 92 Nasal Cannula 6.00 06/20/16 15:00 100 06/20/16 15:00 99.1 103 20 118/68 92 06/20/16 11:00 98 06/20/16 11:00 99.0 98 20 117/68 95 06/20/16 11:00 95 Nasal Cannula 6.00 I/O 06/20/16 06/20/16 06/20/16 06/21/16 06/21/16 06/21/16 07:00 15:00 23:00 07:00 15:00 23:00 Intake Total 1602 ml 851 ml 789 ml Output Total 400 ml 4405 ml 300 ml Balance 1202 ml -3554 ml 489 ml Intake Oral 630 ml 480 ml 480 ml IV Total 972 ml 371 ml 309 ml Output Urine Total 400 ml 405 ml 300 ml Hemodialysis 4000 ml # Bowel Movements 1 0 0 Result Diagram: 06/20/16 0403 06/21/16 0358 Imaging Last Impressions Chest X-Ray 06/20/16 0000 Signed Impressions: Service Date/Time: Monday, June 20, 2016 13:29 - CONCLUSION: Interval placement of right internal jugular Vas-Cath without evidence of pneumothorax. Expiratory exam in which mild congestion may be present. Zaire Sims MD Catheter Placement X-Ray 06/20/16 0000 Signed Impressions: Service Date/Time: Monday, June 20, 2016 00:00 - CONCLUSION: Uncomplicated line placement as above. Clifford Ugalde MD Renal Ultrasound 06/19/16 0000 Signed Impressions: Service Date/Time: Sunday, June 19, 2016 17:51 - CONCLUSION: Normal examination. Roderick Milner MD Objective Remarks General: No acute distress. Heart: Regular rate and rhythm. Lungs: Clear to auscultation bilaterally. No wheezes, rales, or rhonchi. Breathing is nonlabored. Abdomen: Soft, nontender, nondistended. Extremities: 2+ bilateral lower extremity edema. There are wounds on the lower legs with a small amount of serous drainage. Improved compared to initial exam upon admission. Psych: Alert and oriented. Procedures 06/19/16 cardiac catheterization 06/20/16 Vas-Cath placement Urinary Catheter: Yes Assessment to: Continue Rice insert reason: Measure Accurate Output Date of Insertion: Jun 19, 2016 Vascular Central Line Catheter: No A/P Problem List: (1) Acute respiratory failure ICD Code: J96.00 Status: Acute (2) Elevated troponin I level ICD Code: R74.8 Status: Acute (3) NSTEMI (non-ST elevated myocardial infarction) ICD Code: I21.4 Status: Acute (4) Hypertensive emergency ICD Code: I16.1 Status: Resolved (5) Pulmonary edema ICD Code: J81.1 Status: Acute (6) Hypertension ICD Code: I10 Status: Chronic (7) Chronic kidney disease, stage 4 (severe) ICD Code: N18.4 Status: Chronic (8) Chronic systolic CHF (congestive heart failure) ICD Code: I50.22 Status: Chronic (9) CAD (coronary artery disease) ICD Code: I25.10 Status: Chronic (10) Diabetes ICD Code: E11.9 Status: Acute Assessment and Plan 1. Acute exacerbation of chronic systolic congestive heart failure: Patient presented with acute dyspnea likely related to fluid overload. Continue diuresis. Fluid restriction. Echocardiogram report noted. EF 40-45%. 2. Acute respiratory failure: Secondary to above. Improved. Patient required BiPAP initially and was placed on non-rebreather last night. Now stable on nasal cannula. Continue supplemental oxygen. 3. Diabetes mellitus: Monitor Accu-Cheks and cover with sliding scale insulin. Continue Levemir. 4. Chronic kidney disease stage IV: Monitor BUN and creatinine, especially with increased diuresis. Appreciate nephrology recommendations. Patient will need hemodialysis. Vas-Cath placement. 5. Hypertension: Blood pressure was significantly elevated upon presentation to the ER. Still requiring Cardene drip overnight. 6. Hyperlipidemia: Continue statin. 7. NSTEMI: Appreciate cardiology recommendations. Status post cardiac catheterization. Beta-blockers on hold due to decompensated CHF. ROBERT-I on hold secondary to renal failure. Continue aspirin, statin. 8. DVT prophylaxis: Xarelto. Per cardiology, patient will need transfer to [facility] to be evaluated for heart transplant/LVAD. Discharge Planning Case management assisting with possible transfer to [facility]. Problem Qualifiers (1) Pulmonary edema: Qualified Code: J81.0 - Acute pulmonary edema Otoniel Cordero MD Jun 21, 2016 10:41
--- NOTE | 2016-06-21 12:29 | PD.CARD.PN ---
Subjective Subjective Remarks alert in nad Objective Vital Signs / I&O Vital Signs Date Time Temp Pulse Resp B/P Pulse Ox O2 Delivery O2 Flow Rate FiO2 06/21/16 07:50 97 Nasal Cannula 4.00 06/21/16 07:00 95 Nasal Cannula 6.00 Humidified 06/21/16 07:00 99.1 101 24 111/67 95 06/21/16 07:00 101 06/21/16 05:27 141 06/21/16 03:00 95 Nasal Cannula 6.00 Humidified 06/21/16 03:00 104 06/21/16 03:00 99.0 103 20 126/70 92 06/21/16 02:30 92 Nasal Cannula 6.00 Humidified 06/21/16 00:00 108/60 Arterial Line 06/20/16 23:00 113 06/20/16 23:00 98.0 109 21 90/52 97 06/20/16 23:00 97 06/20/16 22:00 94 06/20/16 21:03 92 Nasal Cannula 6.00 06/20/16 19:00 93 Nasal Cannula 6.00 Humidified 06/20/16 19:00 98.1 109 18 102/72 93 06/20/16 19:00 107 06/20/16 15:00 92 Nasal Cannula 6.00 06/20/16 15:00 100 06/20/16 15:00 99.1 103 20 118/68 92 I/O 06/20/16 06/20/16 06/20/16 06/21/16 06/21/16 06/21/16 07:00 15:00 23:00 07:00 15:00 23:00 Intake Total 1602 ml 851 ml 789 ml Output Total 400 ml 4405 ml 300 ml Balance 1202 ml -3554 ml 489 ml Intake Oral 630 ml 480 ml 480 ml IV Total 972 ml 371 ml 309 ml Output Urine Total 400 ml 405 ml 300 ml Hemodialysis 4000 ml # Bowel Movements 1 0 0 Physical Exam GENERAL: SKIN: Warm and dry. HEAD: Normocephalic. EYES: No scleral icterus. No injection or drainage. NECK: Supple, trachea midline. No JVD or lymphadenopathy. CARDIOVASCULAR: Regular rate and rhythm without murmurs, gallops, or rubs. RESPIRATORY: Breath sounds equal bilaterally. No accessory muscle use. GASTROINTESTINAL: Abdomen soft, non-tender, nondistended. MUSCULOSKELETAL: No cyanosis, or edema. BACK: Nontender without obvious deformity. No CVA tenderness. Laboratory Laboratory Tests Test 06/21/16 03:58 Sodium Level 137 MEQ/L Potassium Level 4.2 MEQ/L Chloride Level 103 MEQ/L Carbon Dioxide Level 22.6 MEQ/L Anion Gap 11 MEQ/L Blood Urea Nitrogen 50 MG/DL Creatinine 4.13 MG/DL Estimat Glomerular Filtration 15 ML/MIN Rate Random Glucose 263 MG/DL Calcium Level 8.2 MG/DL Assessment and Plan Problem List: (1) Acute respiratory failure (2) Acute renal failure (3) Elevated troponin I level (4) Shortness of breath (5) Pulmonary edema (6) Hypertension (7) NSTEMI (non-ST elevated myocardial infarction) (8) Chronic kidney disease, stage 4 (severe) (9) Hypertensive emergency (10) Diabetes (11) CAD (coronary artery disease) Assessment and Plan 1.) chf/cad/crf/arf - suspect volume overlaod more due to cri/arf, not responding well to diuresis, bumex drip, requiring dialysis for volume management, [facility] declined patients insurance, attemptimg transfer to [facility] [place], for heart transplant/lvad eval, continue aspirin, xarelto, diuretics per Dr Purvis, d/w nurse and patient and case management Problem Qualifiers (1) Pulmonary edema: Qualified Code: J81.0 - Acute pulmonary edema Sammy Pierre MD Jun 21, 2016 12:29
--- NOTE | 2016-06-21 13:23 | HHI.NPPN ---
Subjective History of Present Illness 60 year old male with CHF, CKD Review of Systems General Constitutional: Fatigue Objective Data Data 06/20/16 06/21/16 19:00 07:00 Intake Total 851 ml 789 ml Output Total 4405 ml 300 ml Balance -3554 ml 489 ml Intake Oral 480 ml 480 ml IV Total 371 ml 309 ml Output Urine Total 405 ml 300 ml Hemodialysis 4000 ml # Bowel Movements 0 0 Vital Signs Date Time Temp Pulse Resp B/P Pulse Ox O2 Delivery O2 Flow Rate FiO2 06/21/16 11:00 98.2 108 24 124/70 94 06/21/16 11:00 108 06/21/16 11:00 95 Nasal Cannula 4.00 Humidified 06/21/16 07:50 97 Nasal Cannula 4.00 06/21/16 07:00 95 Nasal Cannula 6.00 Humidified 06/21/16 07:00 99.1 101 24 111/67 95 06/21/16 07:00 101 06/21/16 05:27 141 06/21/16 03:00 95 Nasal Cannula 6.00 Humidified 06/21/16 03:00 104 06/21/16 03:00 99.0 103 20 126/70 92 06/21/16 02:30 92 Nasal Cannula 6.00 Humidified 06/21/16 00:00 108/60 Arterial Line 06/20/16 23:00 113 06/20/16 23:00 98.0 109 21 90/52 97 06/20/16 23:00 97 06/20/16 22:00 94 06/20/16 21:03 92 Nasal Cannula 6.00 06/20/16 19:00 93 Nasal Cannula 6.00 Humidified 06/20/16 19:00 98.1 109 18 102/72 93 06/20/16 19:00 107 06/20/16 15:00 92 Nasal Cannula 6.00 06/20/16 15:00 100 06/20/16 15:00 99.1 103 20 118/68 92 -: 06/20/16 0403 06/21/16 0358 Physical Exam General Appearance: Well Developed, Well Nourished Neck Neck Exam: Neck Supple Pulmonary Resp Exam: Decreased Bases, Diminished Breath Sounds Cardiology CV Exam: Regular Gastrointestinal/Abdomen GI Exam: Soft, Distended Extremeties Extremities Exam: Pitting Edema, Dependent Edema Assessment/Plan Problem List: (1) Chronic kidney disease, stage 4 (severe) Plan: Patient has advanced kidney disease and underwent emergent heart catheterization he has a high end diastolic filling pressures stated on Hemodialysis seen today UF 6 L on 3K/HCO3 He had HD yesterday 4 L was in and out of A fib during HD (2) Hypertensive emergency Plan: Blood pressure has improved (3) Hypertension (4) Pulmonary edema Plan: Patient needs diuresis he does have a heart catheterization which showed the coronary artery disease and high filling pressures, all vessels have some degree of obstruction, discussed with Dr. Pierre for possibility of dialysis (5) Diabetes Plan: Monitor blood glucose (6) NSTEMI (non-ST elevated myocardial infarction) Problem Qualifiers (1) Pulmonary edema: Qualified Code: J81.0 - Acute pulmonary edema Lucero Purvis MD Jun 21, 2016 13:22
[2016-06-21] MEDS: NITROGLYCERIN/DEXTROSE 5% 250 ML for chest pain IV SCH (13:49)
[2016-06-21] MEDS: SODIUM CHLORIDE 0.9% FLUSH 5 ML FLUSH IVF SCH ×2 (14:22→20:35)
[2016-06-21] MEDS: GENTAMICIN SULFATE (DIALYSIS USE ONLY) 20 MG/2 ML VIAL IV PRN (14:45)
[2016-06-21] MEDS: HEPARIN SODIUM - IV 10,000 UNITS/10 ML VIAL PRN (14:46)
[2016-06-21] MEDS: EPOETIN ALFA 10,000 UNITS/ML VIAL IV PRN (14:46)
[2016-06-21] MEDS: ASPIRIN 81 MG CHEW TAB PO SCH (16:21)
[2016-06-21] MEDS: FERROUS SULFATE 325 MG (65 MG ELEMENTAL IRON) TAB PO SCH ×2 (16:21→17:43)
[2016-06-21] MEDS ORDERED: DIGOXIN 0.5 MG/2 ML VIAL IV PUSH ONE (17:45)
[2016-06-21] MEDS: DILTIAZEM 125 MG/NS 100 ML IV SCH ×2 (18:36)
[2016-06-21] MEDS: TAMSULOSIN HCL 0.4 MG CAP PO SCH (20:34)
[2016-06-21] MEDS: ATORVASTATIN 80 MG TAB PO SCH (20:34)
[2016-06-21] MEDS: INSULIN GLARGINE SQ SCH (20:36)
[2016-06-21] MEDS: diphenhydrAMINE HCL 25 MG CAP PO PRN (22:05)
[2016-06-22] VITALS (11 sets, daily range): BP systolic 100–125; BP diastolic 58–69; PULSE 72–93; RESP 16–20; TEMP 98–98.8; O2SAT 94–99
[2016-06-22 04:35] LABS: AUTOMATED NEUTROPHIL # 6.6 TH/MM3 (1.8-7.7); BASOPHIL % 0.6 % (0.0-2.0); EOSINOPHIL # 0.1 TH/MM3 (0-0.4); EOSINOPHIL % 0.6 % (0.0-4.0); HEMATOCRIT 23.2 % (39.0-51.0); HEMO FLAGS DIFF FINAL; MEAN CELL VOLUME 80.3 FL (80.0-100.0); MEAN CORPUSCULAR HEMOGLOBIN 27.4 PG (27.0-34.0); MEAN CORPUSCULAR HGB CONC 34.1 % (32.0-36.0); MONO % 12.9 % (0.0-8.0); NEUT % 74.9 % (16.0-70.0); PLATELET COUNT 226 TH/MM3 (150-450); RED BLOOD COUNT 2.89 MIL/MM3 (4.50-5.90); RED CELL DISTRIBUTION WIDTH 14.1 % (11.6-17.2); WHITE BLOOD COUNT 8.8 TH/MM3 (4.0-11.0)
[2016-06-22 04:51] LABS: BICARBONATE 25.8 MEQ/L (21.0-32.0); POTASSIUM 3.8 MEQ/L (3.5-5.1)
[2016-06-22] MEDS: INSULIN ASPART SUPPLEMENTAL SCALE SQ SCH ×4 (06:05→21:29)
[2016-06-22] MEDS: FERROUS SULFATE 325 MG (65 MG ELEMENTAL IRON) TAB PO SCH ×2 (08:47→18:00)
[2016-06-22] MEDS: RIVAROXABAN 15 MG TAB PO SCH (08:47)
[2016-06-22] MEDS: ASPIRIN 81 MG CHEW TAB PO SCH (08:47)
[2016-06-22] MEDS: SODIUM CHLORIDE 0.9% FLUSH 5 ML FLUSH IVF SCH ×2 (08:48→21:10)
[2016-06-22] MEDS: MILRINONE 20 MG/NS 100 ML (0.375 mcg/kg/min) IV SCH ×4 (09:34→21:29)
--- NOTE | 2016-06-22 14:42 | PD.CARD.PN ---
Subjective Subjective Remarks alert in nad Objective Vital Signs / I&O Vital Signs Date Time Temp Pulse Resp B/P Pulse Ox O2 Delivery O2 Flow Rate FiO2 06/22/16 11:30 97 Nasal Cannula 3.00 06/22/16 11:30 98.3 85 20 125/69 98 06/22/16 11:00 90 06/22/16 08:30 97 Nasal Cannula 3.00 06/22/16 08:00 98.0 79 18 107/60 94 06/22/16 07:41 98 Nasal Cannula 4.00 06/22/16 07:00 72 06/22/16 04:00 98.8 93 20 114/64 94 06/22/16 04:00 94 4.00 06/22/16 04:00 92 06/22/16 00:00 84 06/22/16 00:00 98 4.00 06/22/16 00:00 85 18 106/63 98 06/21/16 22:00 97 4.00 06/21/16 20:00 97 Nasal Cannula 4.00 06/21/16 20:00 99.4 103 18 106/60 97 06/21/16 20:00 102 06/21/16 15:00 146 06/21/16 15:00 98.9 146 24 103/66 97 06/21/16 15:00 97 Nasal Cannula 4.00 Humidified I/O 06/21/16 06/21/16 06/21/16 06/22/16 06/22/16 06/22/16 07:00 15:00 23:00 07:00 15:00 23:00 Intake Total 789 ml 1293 ml 401 ml Output Total 300 ml 6000 ml 315 ml 230 ml Balance 489 ml -6000 ml 978 ml 171 ml Intake Oral 480 ml 1050 ml 240 ml IV Total 309 ml 243 ml 161 ml Output Urine Total 300 ml 315 ml 230 ml Hemodialysis 6000 ml # Bowel Movements 0 0 1 Physical Exam GENERAL: SKIN: Warm and dry. HEAD: Normocephalic. EYES: No scleral icterus. No injection or drainage. NECK: Supple, trachea midline. No JVD or lymphadenopathy. CARDIOVASCULAR: Regular rate and rhythm without murmurs, gallops, or rubs. RESPIRATORY: Breath sounds equal bilaterally. No accessory muscle use. GASTROINTESTINAL: Abdomen soft, non-tender, nondistended. MUSCULOSKELETAL: No cyanosis, or edema. BACK: Nontender without obvious deformity. No CVA tenderness. Laboratory Laboratory Tests Test 06/22/16 04:00 White Blood Count 8.8 TH/MM3 Red Blood Count 2.89 MIL/MM3 Hemoglobin 7.9 GM/DL Hematocrit 23.2 % Mean Corpuscular Volume 80.3 FL Mean Corpuscular Hemoglobin 27.4 PG Mean Corpuscular Hemoglobin 34.1 % Concent Red Cell Distribution Width 14.1 % Platelet Count 226 TH/MM3 Mean Platelet Volume 8.6 FL Neutrophils (%) (Auto) 74.9 % Lymphocytes (%) (Auto) 11.0 % Monocytes (%) (Auto) 12.9 % Eosinophils (%) (Auto) 0.6 % Basophils (%) (Auto) 0.6 % Neutrophils # (Auto) 6.6 TH/MM3 Lymphocytes # (Auto) 1.0 TH/MM3 Monocytes # (Auto) 1.1 TH/MM3 Eosinophils # (Auto) 0.1 TH/MM3 Basophils # (Auto) 0.0 TH/MM3 CBC Comment DIFF FINAL Differential Comment Sodium Level 137 MEQ/L Potassium Level 3.8 MEQ/L Chloride Level 100 MEQ/L Carbon Dioxide Level 25.8 MEQ/L Anion Gap 11 MEQ/L Blood Urea Nitrogen 47 MG/DL Creatinine 4.24 MG/DL Estimat Glomerular Filtration 14 ML/MIN Rate Random Glucose 236 MG/DL Calcium Level 8.3 MG/DL Magnesium Level 2.0 MG/DL Assessment and Plan Problem List: (1) Acute respiratory failure (2) Acute renal failure (3) Elevated troponin I level (4) Shortness of breath (5) Pulmonary edema (6) Hypertension (7) NSTEMI (non-ST elevated myocardial infarction) (8) Chronic kidney disease, stage 4 (severe) (9) Hypertensive emergency (10) Diabetes (11) CAD (coronary artery disease) Assessment and Plan 1.) chf/cad/crf/arf - suspect volume overlaod more due to cri/arf, not responding well to diuresis, bumex drip, requiring dialysis for volume management, [facility] declined patients insurance, attemptimg transfer to [facility], for heart transplant/lvad eval, continue aspirin, xarelto, diuretics per Dr Purvis, d/w nurse and patient and case management; u/o and oxygenation improving Problem Qualifiers (1) Pulmonary edema: Qualified Code: J81.0 - Acute pulmonary edema Sammy Pierre MD Jun 22, 2016 14:42
--- NOTE | 2016-06-22 14:56 | HHI.PR ---
Subjective Remarks Follow up CHF, NSTEMI, HTN. Patient is doing well. Wants to be discharged so that he can enjoy his vacation. Denies any chest pain, SOB, fever, chills. Had hemodialysis yesterday. Objective Vitals Vital Signs Date Time Temp Pulse Resp B/P Pulse Ox O2 Delivery O2 Flow Rate FiO2 06/22/16 11:30 97 Nasal Cannula 3.00 06/22/16 11:30 98.3 85 20 125/69 98 06/22/16 11:00 90 06/22/16 08:30 97 Nasal Cannula 3.00 06/22/16 08:00 98.0 79 18 107/60 94 06/22/16 07:41 98 Nasal Cannula 4.00 06/22/16 07:00 72 06/22/16 04:00 98.8 93 20 114/64 94 06/22/16 04:00 94 4.00 06/22/16 04:00 92 06/22/16 00:00 84 06/22/16 00:00 98 4.00 06/22/16 00:00 85 18 106/63 98 06/21/16 22:00 97 4.00 06/21/16 20:00 97 Nasal Cannula 4.00 06/21/16 20:00 99.4 103 18 106/60 97 06/21/16 20:00 102 06/21/16 15:00 146 06/21/16 15:00 98.9 146 24 103/66 97 06/21/16 15:00 97 Nasal Cannula 4.00 Humidified I/O 06/21/16 06/21/16 06/21/16 06/22/16 06/22/16 06/22/16 07:00 15:00 23:00 07:00 15:00 23:00 Intake Total 789 ml 1293 ml 401 ml Output Total 300 ml 6000 ml 315 ml 230 ml Balance 489 ml -6000 ml 978 ml 171 ml Intake Oral 480 ml 1050 ml 240 ml IV Total 309 ml 243 ml 161 ml Output Urine Total 300 ml 315 ml 230 ml Hemodialysis 6000 ml # Bowel Movements 0 0 1 Result Diagram: 06/22/16 0400 06/22/16 0400 Imaging Last Impressions Chest X-Ray 06/20/16 0000 Signed Impressions: Service Date/Time: Monday, June 20, 2016 13:29 - CONCLUSION: Interval placement of right internal jugular Vas-Cath without evidence of pneumothorax. Expiratory exam in which mild congestion may be present. Zaire Sims MD Catheter Placement X-Ray 06/20/16 0000 Signed Impressions: Service Date/Time: Monday, June 20, 2016 00:00 - CONCLUSION: Uncomplicated line placement as above. Clifford Ugalde MD Renal Ultrasound 06/19/16 0000 Signed Impressions: Service Date/Time: Sunday, June 19, 2016 17:51 - CONCLUSION: Normal examination. Roderick Milner MD Objective Remarks GENERAL: Alert, Oriented x 3, NAD. SKIN: Warm and dry. HEAD: Normocephalic. EYES: No scleral icterus. No injection or drainage. NECK: Supple, trachea midline. No JVD or lymphadenopathy. CARDIOVASCULAR: Regular rate and rhythm without murmurs, gallops, or rubs. RESPIRATORY: Breath sounds equal bilaterally. No accessory muscle use. GASTROINTESTINAL: Abdomen soft, non-tender, nondistended. MUSCULOSKELETAL: No cyanosis. 2+ edema in lower ext. BACK: Nontender without obvious deformity. No CVA tenderness. Procedures 06/19/16 cardiac catheterization 06/20/16 Vas-Cath placement Date of Insertion: Jun 19, 2016 A/P Problem List: (1) Acute respiratory failure ICD Code: J96.00 Status: Acute (2) Elevated troponin I level ICD Code: R74.8 Status: Acute (3) NSTEMI (non-ST elevated myocardial infarction) ICD Code: I21.4 Status: Acute (4) Hypertensive emergency ICD Code: I16.1 Status: Resolved (5) Pulmonary edema ICD Code: J81.1 Status: Acute (6) Hypertension ICD Code: I10 Status: Chronic (7) Chronic kidney disease, stage 4 (severe) ICD Code: N18.4 Status: Chronic (8) Chronic systolic CHF (congestive heart failure) ICD Code: I50.22 Status: Chronic (9) CAD (coronary artery disease) ICD Code: I25.10 Status: Chronic (10) Diabetes ICD Code: E11.9 Status: Acute Assessment and Plan - Acute exacerbation of chronic systolic congestive heart failure: Patient presented with acute dyspnea likely related to fluid overload. Continue diuresis. Fluid restriction. Echocardiogram report noted. EF 40-45%. - Atrial fibrillation - currently on Cardizem drip. On Xarelto 15mg Qday. - NSTEMI: Appreciate cardiology recommendations. Status post cardiac catheterization. Beta-blockers on hold due to decompensated CHF. ROBERT-I on hold secondary to renal failure. Continue aspirin, statin. - Discussed with Dr. Pierre who is trying to transfer patient to [facility] for heart [facility]/LV[facility]. - Continue Milrinone, Cardizem - Acute respiratory failure: Secondary to above. Improved. Patient required BiPAP initially. Now stable on nasal cannula. Continue supplemental oxygen. - Diabetes mellitus: Monitor Accu-Cheks and cover with sliding scale insulin. Continue Levemir. - Chronic kidney disease stage IV: Monitor BUN and creatinine, especially with increased diuresis. Appreciate nephrology recommendations. Received dialysis yesterday. - Hypertension: Blood pressure was significantly elevated upon presentation to the ER. Currently normotensive. - Hyperlipidemia: Continue statin. - DVT prophylaxis: Xarelto. Full code. Problem Qualifiers (1) Pulmonary edema: Qualified Code: J81.0 - Acute pulmonary edema Mima Chavarria DO Jun 22, 2016 2:56 pm
[2016-06-22] MEDS: INSULIN GLARGINE SQ SCH (21:00)
[2016-06-22] MEDS: TAMSULOSIN HCL 0.4 MG CAP PO SCH (21:10)
[2016-06-22] MEDS: ATORVASTATIN 80 MG TAB PO SCH (21:10)
[2016-06-23] VITALS (9 sets, daily range): BP systolic 107–135; BP diastolic 52–77; PULSE 80–107; RESP 12–20; TEMP 97.8–99.9; O2SAT 96–99
[2016-06-23] MEDS: ACETAMINOPHEN/HYDROcodone 325 MG/5 MG TAB PO PRN ×3 (02:35→23:50)
[2016-06-23] MEDS: INSULIN ASPART SUPPLEMENTAL SCALE SQ SCH ×4 (07:58→20:16)
[2016-06-23] MEDS: MILRINONE 20 MG/NS 100 ML (0.375 mcg/kg/min) IV SCH ×4 (08:20→22:42)
[2016-06-23] MEDS: FERROUS SULFATE 325 MG (65 MG ELEMENTAL IRON) TAB PO SCH ×2 (08:37→17:29)
[2016-06-23] MEDS: RIVAROXABAN 15 MG TAB PO SCH (08:37)
[2016-06-23] MEDS: SODIUM CHLORIDE 0.9% FLUSH 5 ML FLUSH IVF SCH ×2 (08:37→20:17)
[2016-06-23] MEDS: ASPIRIN 81 MG CHEW TAB PO SCH (08:37)
[2016-06-23] MEDS: GENTAMICIN SULFATE (DIALYSIS USE ONLY) 20 MG/2 ML VIAL IV PRN (09:41)
[2016-06-23] MEDS: HEPARIN SODIUM - IV 10,000 UNITS/10 ML VIAL PRN (09:41)
[2016-06-23] MEDS: EPOETIN ALFA 10,000 UNITS/ML VIAL IV PRN (09:41)
[2016-06-23] MEDS: SODIUM CHLOR 0.9% 1000 ML INJ 1,000 ML IV PRN (09:42)
[2016-06-23 10:32] LABS: MEAN CELL VOLUME 80.6 FL (80.0-100.0); MEAN CORPUSCULAR HEMOGLOBIN 27.2 PG (27.0-34.0); MEAN CORPUSCULAR HGB CONC 33.8 % (32.0-36.0); PLATELET COUNT 230 TH/MM3 (150-450); RED BLOOD COUNT 2.85 MIL/MM3 (4.50-5.90); RED CELL DISTRIBUTION WIDTH 13.7 % (11.6-17.2); REVIEW FLAG FINAL; WHITE BLOOD COUNT 6.8 TH/MM3 (4.0-11.0)
[2016-06-23 10:57] LABS: BICARBONATE 28.5 MEQ/L (21.0-32.0); POTASSIUM 3.8 MEQ/L (3.5-5.1)
[2016-06-23] MEDS: DILTIAZEM 125 MG/NS 100 ML IV SCH ×4 (14:44→23:51)
--- NOTE | 2016-06-23 15:23 | HHI.PR ---
Subjective Remarks Patient states he wants to go home denies chest pain/sob denies fevers/chills denies abdoinal pain, nausea or vomiting Objective Vitals Vital Signs Date Time Temp Pulse Resp B/P Pulse Ox O2 Delivery O2 Flow Rate FiO2 06/23/16 15:00 99 Nasal Cannula 2.00 06/23/16 15:00 98.1 103 18 134/76 99 06/23/16 11:00 99 Nasal Cannula 2.00 06/23/16 11:00 107 06/23/16 11:00 97.8 107 18 107/59 99 06/23/16 07:35 99 Nasal Cannula 2.00 06/23/16 07:00 99 Nasal Cannula 2.00 06/23/16 07:00 102 06/23/16 07:00 97.9 102 20 130/76 99 06/23/16 06:00 97 Nasal Cannula 2.00 06/23/16 04:00 80 06/23/16 04:00 97 2.00 06/23/16 04:00 80 18 135/68 97 06/23/16 03:35 18 06/23/16 00:00 80 06/23/16 00:00 97 2.00 06/23/16 00:00 81 16 122/69 98 06/22/16 22:30 97 Nasal Cannula 2.00 06/22/16 22:00 97 2.00 06/22/16 20:00 98.8 89 16 100/63 97 06/22/16 20:00 97 Nasal Cannula 2.00 06/22/16 20:00 88 06/22/16 15:36 98.7 79 16 108/58 99 06/22/16 15:36 99 Nasal Cannula 2.00 I/O 06/22/16 06/22/16 06/22/16 06/23/16 06/23/16 06/23/16 07:00 15:00 23:00 07:00 15:00 23:00 Intake Total 401 ml 916 ml 783 ml Output Total 230 ml 350 ml 600 ml 5500 ml Balance 171 ml 566 ml 183 ml -5500 ml Intake Oral 240 ml 740 ml 480 ml IV Total 161 ml 176 ml 303 ml Output Urine Total 230 ml 350 ml 600 ml Hemodialysis 5500 ml # Bowel Movements 1 0 Result Diagram: 06/23/1648 06/23/16 0948 Imaging Last Impressions Chest X-Ray 06/20/16 0000 Signed Impressions: Service Date/Time: Monday, June 20, 2016 13:29 - CONCLUSION: Interval placement of right internal jugular Vas-Cath without evidence of pneumothorax. Expiratory exam in which mild congestion may be present. Zaire Sims MD Catheter Placement X-Ray 06/20/16 0000 Signed Impressions: Service Date/Time: Monday, June 20, 2016 00:00 - CONCLUSION: Uncomplicated line placement as above. Clifford Ugalde MD Renal Ultrasound 06/19/16 0000 Signed Impressions: Service Date/Time: Sunday, June 19, 2016 17:51 - CONCLUSION: Normal examination. Roderick Milner MD Objective Remarks GENERAL: Alert, Oriented x 3, NAD. SKIN: Warm and dry. HEAD: Normocephalic. EYES: No scleral icterus. No injection or drainage. NECK: Supple, trachea midline. No JVD or lymphadenopathy. CARDIOVASCULAR: Regular rate and rhythm without murmurs, gallops, or rubs. RESPIRATORY: Breath sounds equal bilaterally. No accessory muscle use. GASTROINTESTINAL: Abdomen soft, non-tender, nondistended. MUSCULOSKELETAL: No cyanosis. 2+ edema in lower ext. BACK: Nontender without obvious deformity. No CVA tenderness. Procedures 06/19/16 cardiac catheterization 06/20/16 Vas-Cath placement Medications and IVs Current Medications Medications (Trade) Dose Ordered Sig/Tommy Route Start Time Stop Time Status Last Admin (Cardene Inj/NS 250 ml Inj) 260 ml @ 0 mls/hr TITRATE IV 06/18/16 04:30 06/19/16 05:34 (Zofran Inj) 4 mg Q6H PRN IVP 06/18/16 06:30 06/19/16 15:39 (Dulcolax Supp) 10 mg DAILY PRN NH 06/18/16 06:30 (Tylenol) 650 mg Q6H PRN PO 06/18/16 06:30 ([place] 5-325 Mg) 1 tab Q4H PRN PO 06/18/16 06:30 06/23/16 02:35 (Morphine Inj) 2 mg Q3H PRN IV 06/18/16 06:30 06/21/16 02:32 (D50w (Vial) Inj) 25 ml UNSCH PRN IV PUSH 06/18/16 06:30 (Glucagon Inj) 1 mg UNSCH PRN OTHER 06/18/16 06:30 (Lipitor) 80 mg HS PO 06/18/16 21:00 06/22/16 21:10 (Ferrous Sulfate) 325 mg BIDPC PO 06/18/16 09:00 06/23/16 17:29 (Flomax) 0.4 mg HS PO 06/18/16 21:00 06/22/16 21:10 Patient Own Medication PT OWN MED: Insu... HS SQ 06/18/16 21:00 (Catapres) 0.1 mg Q6H PRN PO 06/18/16 13:00 (Nitrostat Sl) 0.3 mg Q5M PRN SL 06/18/16 20:30 06/19/16 14:23 (NS Flush) 2 ml UNSCH PRN IVF 06/19/16 11:45 (NS Flush) 2 ml BID IVF 06/19/16 21:00 06/23/16 08:37 Aspirin 81 mg 81 mg DAILY PO 06/20/16 09:00 06/23/16 08:37 (Primacor Inj/NS Inj) 100 ml @ 8.52 mls/hr [id number] IV 06/19/16 12:00 06/23/16 08:20 Rivaroxaban 15 mg 15 mg DAILY PO 06/20/16 10:30 06/23/16 08:37 (NS 1000 ml Inj) 1,000 ml @ 0 mls/hr Q0M PRN IV 06/20/16 10:08 06/23/16 09:42 Heparin Sodium (Porcine) 8000 units 8,000 units UNSCH PRN IVF 06/20/16 10:15 Sodium Chloride 1,000 ml @ 200 mls/hr Q5H PRN IV 06/20/16 10:08 06/23/16 09:42 (NS 1000 ml Inj) 1,000 ml @ 0 mls/hr Q0M PRN IV 06/20/16 10:08 (Mannitol Inj) 12.5 gm UNSCH PRN IV 06/20/16 10:15 (Albumin 25% Inj) 25 gm UNSCH PRN IV 06/20/16 10:15 (NS Flush) 5 ml UNSCH PRN IVF 06/20/16 10:15 06/23/16 09:42 (Heparin Inj) UNSCH PRN .XX 06/20/16 10:15 06/23/16 09:41 (Gentamicin (Dialysis) Inj) 20 mg UNSCH PRN IV 06/20/16 10:15 06/23/16 09:41 (Zofran Inj) 4 mg UNSCH PRN IV 06/20/16 10:15 (Tylenol) 650 mg UNSCH PRN PO 06/20/16 10:15 (Benadryl) 25 mg UNSCH PRN PO 06/20/16 10:15 06/21/16 22:05 (Nitrostat Sl) 0.4 mg UNSCH PRN SL 06/20/16 10:15 (Catapres) 0.1 mg UNSCH PRN PO 06/20/16 10:15 (Epogen Inj) 4,000 units UNSCH PRN IV 06/20/16 10:15 06/23/16 09:41 (Gelfoam 12 Mm/7 Mm Top) 1 foam UNSCH PRN TOP 06/20/16 10:15 06/21/16 04:18 (NS Flush) UNSCH PRN IVF 06/20/16 13:30 Heparin Sodium (Porcine) UNSCH PRN IVF 06/20/16 13:30 (Cardizem Inj/NS Inj) 125 ml @ 0 mls/hr TITRATE IV 06/21/16 17:45 06/23/16 14:44 (Levemir Inj) 10 units BID SQ 06/23/16 21:00 (NovoLOG INJ) 7 units TIDAC SQ 06/23/16 17:00 06/23/16 17:29 Urinary Catheter: No Date of Insertion: Jun 19, 2016 Vascular Central Line Catheter: No A/P Problem List: (1) Acute on chronic systolic (congestive) heart failure ICD Code: I50.23 Status: Acute Plan: Patient presented with acute dyspnea likely due to fluid overload plus from my edema. Treated with IV diuretics, fluid restriction. Echocardiogram report noted EF of 40-45%. As per cardiology note, [facility] [place] and [facility] both have declined the patient for heart transplant/LVAD. Continue milrinone and Cardizem as per cardiology recommendations. (2) Acute respiratory failure ICD Code: J96.00 Status: Resolved Plan: Secondary to above. Now resolved. Patient initially required BiPAP, however is now stable nasal cannula. Continue supplemental oxygen to keep an oxygen saturation of more than 92%. (3) NSTEMI (non-ST elevated myocardial infarction) ICD Code: I21.4 Status: Acute Plan: Cardiology consulted. Patient is status post cardiac catheterization. Beta blockers and ROBERT inhibitor held due to the compensated CHF and FOX. Continue aspirin, statin. (4) Hypertensive emergency ICD Code: I16.1 Status: Resolved Plan: Now resolved. Patient's blood pressure was significantly elevated upon presentation to the ER. Now stable. Continue to monitor vital signs. Continue clonidine when necessary. (5) Pulmonary edema ICD Code: J81.1 Status: Resolved Plan: As above. Secondary to fluid overload due to congestive heart failure and acute kidney injury. Volume overload now been managed with hemodialysis. (6) CAD (coronary artery disease) ICD Code: I25.10 Status: Chronic Plan: Patient had some cardiac enzymes which were elevated likely secondary to hypertensive urgency. Patient is chest pain-free. (7) Diabetes ICD Code: E11.9 Status: Acute Plan: Blood sugar still uncontrolled and elevated. I will increase the patient 's Levemir to 10 units subcutaneous twice a day and also increase the sinus canal to medium. I will also start the patient on prandial NovoLog. Continue to monitor Accu-Cheks and will adjust insulin dosage accordingly. (8) FOX (acute kidney injury) ICD Code: N17.9 Status: Acute Plan: Patient has chronic kidney disease stage IV with unknown baseline creatinine. Creatinine is still elevated at 4.26 with elevated BUNs at 61. Continue to need to monitor BUN/creatinine, patient still oliguric. Follow-up nephrology recommendations, hemodialysis as per nephrology. Avoid NSAIDs, nephrotoxins. (9) Hyperlipidemia ICD Code: E78.5 Status: Acute Plan: Continue statin. Lipid profile showed normal triglycerides at 86, total cholesterol 93, LDL cholesterol 42 and HDL cholesterol 33.9. (10) Atrial fibrillation ICD Code: I48.91 Status: Chronic Plan: Rate controlled. Patient on Cardizem po. Continue Xarelto. Problem Qualifiers (1) Pulmonary edema: Qualified Code: J81.0 - Acute pulmonary edema (2) CAD (coronary artery disease): (3) Diabetes: Qualified Code: E11.65 - Type 2 diabetes mellitus with hyperglycemia, with long -term current use of insulin (4) Hyperlipidemia: Qualified Code: E78.5 - Hyperlipidemia, unspecified hyperlipidemia type iTm Vargas MD Jun 23, 2016 15:23
--- NOTE | 2016-06-23 16:05 | PD.CARD.PN ---
Subjective Subjective Remarks alert in nad Objective Vital Signs / I&O Vital Signs Date Time Temp Pulse Resp B/P Pulse Ox O2 Delivery O2 Flow Rate FiO2 06/23/16 15:00 99 Nasal Cannula 2.00 06/23/16 15:00 103 06/23/16 15:00 98.1 103 18 134/76 99 06/23/16 11:00 99 Nasal Cannula 2.00 06/23/16 11:00 107 06/23/16 11:00 97.8 107 18 107/59 99 06/23/16 07:35 99 Nasal Cannula 2.00 06/23/16 07:00 99 Nasal Cannula 2.00 06/23/16 07:00 102 06/23/16 07:00 97.9 102 20 130/76 99 06/23/16 06:00 97 Nasal Cannula 2.00 06/23/16 04:00 80 06/23/16 04:00 97 2.00 06/23/16 04:00 80 18 135/68 97 06/23/16 03:35 18 06/23/16 00:00 80 06/23/16 00:00 97 2.00 06/23/16 00:00 81 16 122/69 98 06/22/16 22:30 97 Nasal Cannula 2.00 06/22/16 22:00 97 2.00 06/22/16 20:00 98.8 89 16 100/63 97 06/22/16 20:00 97 Nasal Cannula 2.00 06/22/16 20:00 88 I/O 06/22/16 06/22/16 06/22/16 06/23/16 06/23/16 06/23/16 07:00 15:00 23:00 07:00 15:00 23:00 Intake Total 401 ml 916 ml 783 ml Output Total 230 ml 350 ml 600 ml 5500 ml Balance 171 ml 566 ml 183 ml -5500 ml Intake Oral 240 ml 740 ml 480 ml IV Total 161 ml 176 ml 303 ml Output Urine Total 230 ml 350 ml 600 ml Hemodialysis 5500 ml # Bowel Movements 1 0 Physical Exam GENERAL: SKIN: Warm and dry. HEAD: Normocephalic. EYES: No scleral icterus. No injection or drainage. NECK: Supple, trachea midline. No JVD or lymphadenopathy. CARDIOVASCULAR: Regular rate and rhythm without murmurs, gallops, or rubs. RESPIRATORY: Breath sounds equal bilaterally. No accessory muscle use. GASTROINTESTINAL: Abdomen soft, non-tender, nondistended. MUSCULOSKELETAL: No cyanosis, or edema. BACK: Nontender without obvious deformity. No CVA tenderness. Laboratory Laboratory Tests Test 06/23/16 06/23/16 04:35 09:48 B-Type Natriuretic Peptide 1131 PG/ML White Blood Count 6.8 TH/MM3 Red Blood Count 2.85 MIL/MM3 Hemoglobin 7.8 GM/DL Hematocrit 23.0 % Mean Corpuscular Volume 80.6 FL Mean Corpuscular Hemoglobin 27.2 PG Mean Corpuscular Hemoglobin 33.8 % Concent Red Cell Distribution Width 13.7 % Platelet Count 230 TH/MM3 Mean Platelet Volume 8.9 FL Sodium Level 136 MEQ/L Potassium Level 3.8 MEQ/L Chloride Level 97 MEQ/L Carbon Dioxide Level 28.5 MEQ/L Anion Gap 11 MEQ/L Blood Urea Nitrogen 61 MG/DL Creatinine 4.26 MG/DL Estimat Glomerular Filtration 14 ML/MIN Rate Random Glucose 264 MG/DL Calcium Level 8.3 MG/DL Assessment and Plan Problem List: (1) Acute respiratory failure (2) Acute renal failure (3) Elevated troponin I level (4) Shortness of breath (5) Pulmonary edema (6) Hypertension (7) NSTEMI (non-ST elevated myocardial infarction) (8) Chronic kidney disease, stage 4 (severe) (9) Hypertensive emergency (10) Diabetes (11) CAD (coronary artery disease) Assessment and Plan 1.) chf/cad/crf/arf -continue milronone, suspect volume overlaod more due to cri/arf, not responding well to diuresis, bumex drip, requiring dialysis for volume management, [facility] declined patients insurance, continue aspirin, xarelto, diuretics, prn dialysis per Dr Purvis, d/w nurse and patient and case management; u/o and oxygenation improving; beta chandrika and edi held due to decompensated chf and arf Problem Qualifiers (1) Pulmonary edema: Qualified Code: J81.0 - Acute pulmonary edema Sammy Pierre MD Jun 23, 2016 16:05
[2016-06-23] MEDS: INSULIN ASPART 1,000 UNITS/10 ML VIAL SQ SCH (17:29)
--- NOTE | 2016-06-23 18:01 | HHI.NPPN ---
Subjective History of Present Illness 60 year old male with CHF, CKD Review of Systems General Constitutional: Fatigue Objective Data Data 06/22/16 06/23/16 19:00 07:00 Intake Total 916 ml 783 ml Output Total 350 ml 600 ml Balance 566 ml 183 ml Intake Oral 740 ml 480 ml IV Total 176 ml 303 ml Output Urine Total 350 ml 600 ml # Bowel Movements 0 Vital Signs Date Time Temp Pulse Resp B/P Pulse Ox O2 Delivery O2 Flow Rate FiO2 06/23/16 15:00 99 Nasal Cannula 2.00 06/23/16 15:00 103 06/23/16 15:00 98.1 103 18 134/76 99 06/23/16 11:00 99 Nasal Cannula 2.00 06/23/16 11:00 107 06/23/16 11:00 97.8 107 18 107/59 99 06/23/16 07:35 99 Nasal Cannula 2.00 06/23/16 07:00 99 Nasal Cannula 2.00 06/23/16 07:00 102 06/23/16 07:00 97.9 102 20 130/76 99 06/23/16 06:00 97 Nasal Cannula 2.00 06/23/16 04:00 80 06/23/16 04:00 97 2.00 06/23/16 04:00 80 18 135/68 97 06/23/16 03:35 18 06/23/16 00:00 80 06/23/16 00:00 97 2.00 06/23/16 00:00 81 16 122/69 98 06/22/16 22:30 97 Nasal Cannula 2.00 06/22/16 22:00 97 2.00 06/22/16 20:00 98.8 89 16 100/63 97 06/22/16 20:00 97 Nasal Cannula 2.00 06/22/16 20:00 88 -: 06/23/16 0948 06/23/16 0948 Physical Exam General Appearance: Well Developed, Well Nourished Neck Neck Exam: Neck Supple Pulmonary Resp Exam: Decreased Bases, Diminished Breath Sounds Cardiology CV Exam: Regular Gastrointestinal/Abdomen GI Exam: Soft, Distended Extremeties Extremities Exam: Pitting Edema, Dependent Edema Assessment/Plan Problem List: (1) Chronic kidney disease, stage 4 (severe) Plan: Patient has advanced kidney disease and underwent emergent heart catheterization he has a high end diastolic filling pressures stated on Hemodialysis UF 5.5 L on 3K/HCO3 all fluid is off makes urine GFR about 14 -15 may take out vascath by am and maintain on diuretic (2) Hypertensive emergency Plan: Blood pressure has improved (3) Hypertension (4) Pulmonary edema Plan: Patient needs diuresis he does have a heart catheterization which showed the coronary artery disease and high filling pressures, all vessels have some degree of obstruction, discussed with Dr. Pierre for possibility of dialysis (5) Diabetes Plan: Monitor blood glucose (6) NSTEMI (non-ST elevated myocardial infarction) Problem Qualifiers (1) Pulmonary edema: Qualified Code: J81.0 - Acute pulmonary edema (2) Diabetes: Qualified Code: E11.65 - Type 2 diabetes mellitus with hyperglycemia, with long -term current use of insulin Lucero Purvis MD Jun 23, 2016 18:01
[2016-06-23] MEDS ORDERED: SORBITOL 70% SOLN 30 ML CUP PO ONE (18:15)
--- NOTE | 2016-06-23 18:24 | HHI.FPPN ---
Subjective Remarks seen pt on 06/22/16 late entry Objective Vitals Vital Signs Date Time Temp Pulse Resp B/P Pulse Ox O2 Delivery O2 Flow Rate FiO2 06/23/16 15:00 99 Nasal Cannula 2.00 06/23/16 15:00 103 06/23/16 15:00 98.1 103 18 134/76 99 06/23/16 11:00 99 Nasal Cannula 2.00 06/23/16 11:00 107 06/23/16 11:00 97.8 107 18 107/59 99 06/23/16 07:35 99 Nasal Cannula 2.00 06/23/16 07:00 99 Nasal Cannula 2.00 06/23/16 07:00 102 06/23/16 07:00 97.9 102 20 130/76 99 06/23/16 06:00 97 Nasal Cannula 2.00 06/23/16 04:00 80 06/23/16 04:00 97 2.00 06/23/16 04:00 80 18 135/68 97 06/23/16 03:35 18 06/23/16 00:00 80 06/23/16 00:00 97 2.00 06/23/16 00:00 81 16 122/69 98 06/22/16 22:30 97 Nasal Cannula 2.00 06/22/16 22:00 97 2.00 06/22/16 20:00 98.8 89 16 100/63 97 06/22/16 20:00 97 Nasal Cannula 2.00 06/22/16 20:00 88 I/O 06/22/16 06/22/16 06/22/16 06/23/16 06/23/16 06/23/16 07:00 15:00 23:00 07:00 15:00 23:00 Intake Total 401 ml 916 ml 783 ml 432 ml Output Total 230 ml 350 ml 600 ml 5500 ml 350 ml Balance 171 ml 566 ml 183 ml -5500 ml 82 ml Intake Oral 240 ml 740 ml 480 ml 240 ml IV Total 161 ml 176 ml 303 ml 192 ml Output Urine Total 230 ml 350 ml 600 ml 350 ml Hemodialysis 5500 ml # Bowel Movements 1 0 1 Result Diagram: 06/23/1648 06/23/16 0948 Objective Remarks GENERAL: Well-nourished, well-developed patient. SKIN: Warm and dry. HEAD: Normocephalic. EYES: No scleral icterus. No injection or drainage. NECK: Supple, trachea midline. No JVD or lymphadenopathy. CARDIOVASCULAR: Regular rate and rhythm without murmurs, gallops, or rubs. RESPIRATORY: Breath sounds equal bilaterally. No accessory muscle use. GASTROINTESTINAL: Abdomen soft, non-tender, nondistended. EXTREMITIES: No cyanosis,2 plus edema. NEUROLOGICAL: Awake, alert, and oriented x 3. Non-focal. Date of Insertion: Jun 19, 2016 A/P Assessment and Plan ARF/CKD CHF DM Plan: HD to continue tomorrow possible to stop HD Lucero Purvis MD Jun 23, 2016 18:24
[2016-06-23] MEDS: TAMSULOSIN HCL 0.4 MG CAP PO SCH (20:16)
[2016-06-23] MEDS: ATORVASTATIN 80 MG TAB PO SCH (20:16)
[2016-06-23] MEDS: INSULIN GLARGINE SQ SCH (20:17)
[2016-06-23] MEDS: INSULIN DETEMIR 100 UNITS/ML VIAL SQ SCH (20:17)
[2016-06-23] MEDS: diphenhydrAMINE HCL 25 MG CAP PO PRN (23:50)
[2016-06-24] MEDS: diphenhydrAMINE HCL 25 MG CAP PO PRN (01:26)
[2016-06-24 03:00] VITALS: BP 111/63; PULSE 97; RESP 16; TEMP 99.5; O2SAT 94
[2016-06-24 03:08] VITALS: PULSE 97
[2016-06-24] MEDS: ACETAMINOPHEN/HYDROcodone 325 MG/5 MG TAB PO PRN (04:31)
[2016-06-24 05:19] LABS: BICARBONATE 25.7 MEQ/L (21.0-32.0); POTASSIUM 3.5 MEQ/L (3.5-5.1)
[2016-06-24 07:00] VITALS: BP 104/59; PULSE 90; RESP 18; TEMP 99.4; O2SAT 98
[2016-06-24] MEDS: INSULIN ASPART SUPPLEMENTAL SCALE SQ SCH ×3 (07:29→16:41)
[2016-06-24] MEDS: INSULIN ASPART 1,000 UNITS/10 ML VIAL SQ SCH ×3 (07:30→16:41)
[2016-06-24 07:56] VITALS: O2SAT 97
[2016-06-24] MEDS: MILRINONE 20 MG/NS 100 ML (0.375 mcg/kg/min) IV SCH ×2 (08:03)
[2016-06-24] MEDS: ASPIRIN 81 MG CHEW TAB PO SCH (08:31)
[2016-06-24] MEDS: RIVAROXABAN 15 MG TAB PO SCH (08:31)
[2016-06-24] MEDS: SODIUM CHLORIDE 0.9% FLUSH 5 ML FLUSH IVF SCH (08:31)
[2016-06-24] MEDS: FERROUS SULFATE 325 MG (65 MG ELEMENTAL IRON) TAB PO SCH ×2 (08:31→17:30)
[2016-06-24] MEDS: INSULIN DETEMIR 100 UNITS/ML VIAL SQ SCH (08:33)
[2016-06-24] MEDS: DILTIAZEM 125 MG/NS 100 ML IV SCH ×2 (08:46)
--- NOTE | 2016-06-24 08:54 | PD.CARD.PN ---
Subjective Subjective Remarks alert in nad Objective Vital Signs / I&O Vital Signs Date Time Temp Pulse Resp B/P Pulse Ox O2 Delivery O2 Flow Rate FiO2 06/24/16 07:00 98 Room Air 06/24/16 07:00 90 06/24/16 07:00 99.4 90 18 104/59 98 06/24/16 03:08 97 06/24/16 03:00 99.5 97 16 111/63 94 06/24/16 03:00 99 Bi-Pap 2.00 06/23/16 23:00 93 06/23/16 23:00 99 Bi-Pap 2.00 06/23/16 23:00 99.5 107 12 123/77 96 06/23/16 21:39 96 21 06/23/16 19:00 99.9 104 20 115/52 96 06/23/16 19:00 96 Room Air 06/23/16 19:00 104 06/23/16 15:00 99 Nasal Cannula 2.00 06/23/16 15:00 103 06/23/16 15:00 98.1 103 18 134/76 99 06/23/16 11:00 99 Nasal Cannula 2.00 06/23/16 11:00 107 06/23/16 11:00 97.8 107 18 107/59 99 I/O 06/23/16 06/23/16 06/23/16 06/24/16 06/24/16 06/24/16 07:00 15:00 23:00 07:00 15:00 23:00 Intake Total 783 ml 432 ml 1107 ml Output Total 600 ml 5500 ml 350 ml 225 ml Balance 183 ml -5500 ml 82 ml 882 ml Intake Oral 480 ml 240 ml 830 ml IV Total 303 ml 192 ml 277 ml Output Urine Total 600 ml 350 ml 225 ml Hemodialysis 5500 ml # Bowel Movements 0 1 1 Physical Exam GENERAL: SKIN: Warm and dry. HEAD: Normocephalic. EYES: No scleral icterus. No injection or drainage. NECK: Supple, trachea midline. No JVD or lymphadenopathy. CARDIOVASCULAR: Regular rate and rhythm without murmurs, gallops, or rubs. RESPIRATORY: Breath sounds equal bilaterally. No accessory muscle use. GASTROINTESTINAL: Abdomen soft, non-tender, nondistended. MUSCULOSKELETAL: No cyanosis, or edema. BACK: Nontender without obvious deformity. No CVA tenderness. Laboratory Laboratory Tests Test 06/23/16 06/24/16 09:48 04:31 White Blood Count 6.8 TH/MM3 Red Blood Count 2.85 MIL/MM3 Hemoglobin 7.8 GM/DL Hematocrit 23.0 % Mean Corpuscular Volume 80.6 FL Mean Corpuscular Hemoglobin 27.2 PG Mean Corpuscular Hemoglobin 33.8 % Concent Red Cell Distribution Width 13.7 % Platelet Count 230 TH/MM3 Mean Platelet Volume 8.9 FL Sodium Level 136 MEQ/L 136 MEQ/L Potassium Level 3.8 MEQ/L 3.5 MEQ/L Chloride Level 97 MEQ/L 97 MEQ/L Carbon Dioxide Level 28.5 MEQ/L 25.7 MEQ/L Anion Gap 11 MEQ/L 13 MEQ/L Blood Urea Nitrogen 61 MG/DL 51 MG/DL Creatinine 4.26 MG/DL 4.15 MG/DL Estimat Glomerular Filtration 14 ML/MIN 15 ML/MIN Rate Random Glucose 264 MG/DL 229 MG/DL Calcium Level 8.3 MG/DL 8.4 MG/DL B-Type Natriuretic Peptide 1287 PG/ML Assessment and Plan Problem List: (1) Acute respiratory failure (2) Acute renal failure (3) Elevated troponin I level (4) Shortness of breath (5) Pulmonary edema (6) Hypertension (7) NSTEMI (non-ST elevated myocardial infarction) (8) Chronic kidney disease, stage 4 (severe) (9) Hypertensive emergency (10) Diabetes (11) CAD (coronary artery disease) Assessment and Plan 1.) chf/cad/crf/arf -continue milronone, suspect volume overlaod more due to cri/arf, not responding well to diuresis, bumex drip, requiring dialysis for volume management, [facility] and [facility] declined patients insurance, continue aspirin, xarelto, diuretics, prn dialysis per Dr Purvis d/w nurse and patient and case management; arf, u/o and oxygenation improving; beta chandrika and edi held due to decompensated chf and arf; im on vacatio until 07/07/16. Dr Tashi prater d/w nurse. Problem Qualifiers (1) Pulmonary edema: Qualified Code: J81.0 - Acute pulmonary edema (2) Diabetes: Qualified Code: E11.65 - Type 2 diabetes mellitus with hyperglycemia, with long -term current use of insulin (3) CAD (coronary artery disease): Sammy Pierre MD Jun 24, 2016 08:54
[2016-06-24] MEDS ORDERED: SORBITOL 70% SOLN 30 ML CUP PO SCH (09:00)
[2016-06-24] MEDS ORDERED: BUMETANIDE 1 MG TAB PO SCH ×2 (09:00→17:00)
[2016-06-24 11:00] VITALS: BP 124/71; PULSE 91; RESP 18; TEMP 99.2; O2SAT 98
[2016-06-24] MEDS: DILTIAZEM HCL 30 MG TAB PO SCH ×2 (12:21→17:30)
[2016-06-24 15:00] VITALS: BP 120/70; PULSE 90; PULSE 93; RESP 18; TEMP 98.5; O2SAT 96
--- NOTE | 2016-06-24 16:28 | HHI.NPPN ---
Subjective History of Present Illness 60 year old male with CHF, CKD Review of Systems General Constitutional: Fatigue Objective Data Data Vital Signs Date Time Temp Pulse Resp B/P Pulse Ox O2 Delivery O2 Flow Rate FiO2 06/24/16 15:00 96 Room Air 06/24/16 15:00 90 06/24/16 15:00 98.5 93 18 120/70 96 06/24/16 11:00 91 06/24/16 11:00 98 Room Air 06/24/16 11:00 99.2 91 18 124/71 98 06/24/16 07:56 97 21 06/24/16 07:00 98 Room Air 06/24/16 07:00 90 06/24/16 07:00 99.4 90 18 104/59 98 06/24/16 03:08 97 06/24/16 03:00 99.5 97 16 111/63 94 06/24/16 03:00 99 Bi-Pap 2.00 06/23/16 23:00 93 06/23/16 23:00 99 Bi-Pap 2.00 06/23/16 23:00 99.5 107 12 123/77 96 06/23/16 21:39 96 21 06/23/16 19:00 99.9 104 20 115/52 96 06/23/16 19:00 96 Room Air 06/23/16 19:00 104 -: 06/23/16 0948 06/24/16 0431 Physical Exam General Appearance: Well Developed, Well Nourished Neck Neck Exam: Neck Supple Pulmonary Resp Exam: Decreased Bases, Diminished Breath Sounds Cardiology CV Exam: Regular Gastrointestinal/Abdomen GI Exam: Soft, Distended Extremeties Extremities Exam: Pitting Edema, Dependent Edema Assessment/Plan Problem List: (1) Chronic kidney disease, stage 4 (severe) Plan: Patient has advanced kidney disease and underwent emergent heart catheterization he has a high end diastolic filling pressures started on Hemodialysis GFR 14-15 ckd 4-5 has nephropathy follows with Nephrology advice to stop dialysis use diuresis Fluid restrict 32 oz a day return to Nephrology team in [place] (2) Hypertensive emergency Plan: Blood pressure has improved (3) Hypertension (4) Pulmonary edema Plan: Patient needs diuresis he does have a heart catheterization which showed the coronary artery disease and high filling pressures, all vessels have some degree of obstruction, discussed with Dr. Pierre for possibility of dialysis (5) Diabetes Plan: Monitor blood glucose (6) NSTEMI (non-ST elevated myocardial infarction) Problem Qualifiers (1) Pulmonary edema: Qualified Code: J81.0 - Acute pulmonary edema (2) Diabetes: Qualified Code: E11.65 - Type 2 diabetes mellitus with hyperglycemia, with long -term current use of insulin Lucero Purvis MD Jun 24, 2016 16:28
[2016-06-24] MEDS ORDERED: BUME1TAB PO (17:13)
[2016-06-24] MEDS ORDERED: DILT31TA PO (17:13)
[2016-06-24] MEDS ORDERED: XARE15TA PO (17:13)
--- NOTE | 2016-06-24 17:16 | HHI.DCPOC ---
Discharge Care Plan Diagnosis: (1) Acute renal failure (2) Elevated troponin I level (3) Shortness of breath (4) Acute respiratory failure (5) CAD (coronary artery disease) (6) Diabetes (7) Hyperlipidemia (8) Pulmonary edema (9) Hypertension (10) NSTEMI (non-ST elevated myocardial infarction) (11) FOX (acute kidney injury) (12) Acute on chronic systolic (congestive) heart failure (13) Hypertensive emergency (14) Cardiomyopathy Your Health Problems Are: Leg Swelling Fluid/Lung Overload Shortness of Breath Goals to Promote Your Health * To prevent worsening of your condition and complications * To maintain your health at the optimal level Directions to Meet Your Goals Take your medications as prescribed Follow your dietary instruction Follow activity as directed Keep your appointments as scheduled Take your immunizations and boosters as scheduled If your symptoms worsen call your PCP, if no PCP go to Urgent Care Center or Emergency Room Smoking is Dangerous to Your Health. Avoid second hand smoke Call the 24-hour hour crisis hotline for domestic abuse at Tim Vargas MD Jun 24, 2016 17:16
--- NOTE | 2016-06-24 17:29 | HHI.DS ---
Discharge Summary Admission Date Jun 18, 2016 at 06:29 Discharge Date: Jun 24, 2016 Admitting Diagnosis CHF, NSTEMI, CP. (1) Acute on chronic systolic (congestive) heart failure ICD Code: I50.23 Diagnosis: Principal (2) Acute respiratory failure ICD Code: J96.00 Diagnosis: Principal (3) NSTEMI (non-ST elevated myocardial infarction) ICD Code: I21.4 Diagnosis: Principal (4) Hypertensive emergency ICD Code: I16.1 Diagnosis: Principal (5) Pulmonary edema ICD Code: J81.1 Diagnosis: Principal (6) CAD (coronary artery disease) ICD Code: I25.10 Diagnosis: Principal (7) Diabetes ICD Code: E11.9 Diagnosis: Principal (8) FOX (acute kidney injury) ICD Code: N17.9 Diagnosis: Principal (9) Hyperlipidemia ICD Code: E78.5 Diagnosis: Principal (10) Atrial fibrillation ICD Code: I48.91 Diagnosis: Secondary Procedures 06/19/16 cardiac catheterization 06/20/16 Vas-Cath placement Brief History - From Admission The patient is a 60-year-old male with known history of CHF who is in town for a few weeks visiting from [place]. He states that he has not been following his diet, fluid restriction over the last few days. He reports that at 2:30 this morning he was awakened from sleep with a sensation of not being able to catch his breath. He reports coughing, nonproductive. He had mild chest pain that did not radiate. He reports chronic kidney disease, stating that his kidneys "are at about 23%". He is feeling somewhat better after treatment in the ER. No chest pain currently. CBC/BMP: 06/23/16 0948 06/24/16 0431 Significant Findings Laboratory Tests Test 06/22/16 06/23/16 06/23/16 06/24/16 04:00 04:35 09:48 04:31 Red Blood Count 2.89 MIL/MM3 2.85 MIL/MM3 (4.50-5.90) (4.50-5.90) Hemoglobin 7.9 GM/DL 7.8 GM/DL (13.0-17.0) (13.0-17.0) Hematocrit 23.2 % 23.0 % (39.0-51.0) (39.0-51.0) Neutrophils (%) (Auto) 74.9 % (16.0-70.0) Monocytes (%) (Auto) 12.9 % (0.0-8.0) Monocytes # (Auto) 1.1 TH/MM3 (0-0.9) Blood Urea Nitrogen 47 MG/DL (7-18) 61 MG/DL (7-18) 51 MG/DL (7-18) Creatinine 4.24 MG/DL 4.26 MG/DL 4.15 MG/DL (0.60-1.30) (0.60-1.30) (0.60-1.30) Estimat Glomerular Filtration 14 ML/MIN (>89) 14 ML/MIN (>89) 15 ML/MIN (>89) Rate Random Glucose 236 MG/DL 264 MG/DL 229 MG/DL (74-106) (74-106) (74-106) Calcium Level 8.3 MG/DL 8.3 MG/DL 8.4 MG/DL (8.5-10.1) (8.5-10.1) (8.5-10.1) B-Type Natriuretic Peptide 1131 PG/ML 1287 PG/ML (0-100) (0-100) Chloride Level 97 MEQ/L 97 MEQ/L (98-107) (98-107) Imaging Last Impressions Chest X-Ray 06/20/16 0000 Signed Impressions: Service Date/Time: Monday, June 20, 2016 13:29 - CONCLUSION: Interval placement of right internal jugular Vas-Cath without evidence of pneumothorax. Expiratory exam in which mild congestion may be present. Zaire Sims MD Catheter Placement X-Ray 06/20/16 0000 Signed Impressions: Service Date/Time: Monday, June 20, 2016 00:00 - CONCLUSION: Uncomplicated line placement as above. Clifford Uaglde MD Renal Ultrasound 06/19/16 0000 Signed Impressions: Service Date/Time: Sunday, June 19, 2016 17:51 - CONCLUSION: Normal examination. Roderick Milner MD PE at Discharge GENERAL: Alert, Oriented x 3, NAD. SKIN: Warm and dry. HEAD: Normocephalic. EYES: No scleral icterus. No injection or drainage. NECK: Supple, trachea midline. No JVD or lymphadenopathy. CARDIOVASCULAR: Regular rate and rhythm without murmurs, gallops, or rubs. RESPIRATORY: Breath sounds equal bilaterally. No accessory muscle use. GASTROINTESTINAL: Abdomen soft, non-tender, nondistended. MUSCULOSKELETAL: No cyanosis. 2+ edema in lower ext. BACK: Nontender without obvious deformity. No CVA tenderness. Pt update on day of discharge Patient cleared to be dicharged by cardiology and nephrology. discussed case with Dr Vang - patient has CKD 4-5 can go back to his home state and follow up with receptionist telephone operator since he is still urinating. Patient denies cp/sob. Discussed with RN - he was able to walk and ambulate without difficulty as per RN. Patient advised to follow up with primary, cardiology and nephrology. Hospital Course (1) Acute on chronic systolic (congestive) heart failure Patient presented with acute dyspnea likely due to fluid overload plus from my edema. Treated with IV diuretics, fluid restriction. Echocardiogram report noted EF of 40-45%. As per cardiology note, [facility] in [place] and [facility] both have declined the patient for heart transplant/LVAD. Continue milrinone and Cardizem as per cardiology recommendations. (2) Acute respiratory failure Secondary to above. Now resolved. Patient initially required BiPAP, however is now stable nasal cannula. Continue supplemental oxygen to keep an oxygen saturation of more than 92%. (3) NSTEMI (non-ST elevated myocardial infarction) Cardiology consulted. Patient is status post cardiac catheterization. Beta blockers and ROBERT inhibitor held due to the compensated CHF and FOX. Continue aspirin, statin. (4) Hypertensive emergency resolved. Patient's blood pressure was significantly elevated upon presentation to the ER. Now stable. Continue to monitor vital signs. Continue clonidine when necessary. (5) Pulmonary edema As above. Secondary to fluid overload due to congestive heart failure and acute kidney injury. Volume overload now been managed with hemodialysis. (6) CAD (coronary artery disease) Patient had some cardiac enzymes which were elevated likely secondary to hypertensive urgency. Patient is chest pain-free. (7) Diabetes Blood sugar still uncontrolled and elevated. I will increase the patient's Levemir to 10 units subcutaneous twice a day and also increase the sinus canal to medium. I will also start the patient on prandial NovoLog. Continue to monitor Accu-Cheks and will adjust insulin dosage accordingly. (8) FOX (acute kidney injury) Patient has chronic kidney disease stage IV with unknown baseline creatinine. Creatinine is still elevated at 4.26 with elevated BUNs at 61. Continue to need to monitor BUN/creatinine, patient still oliguric. Follow-up nephrology recommendations, hemodialysis as per nephrology. Avoid NSAIDs, nephrotoxins. (9) Hyperlipidemia Plan: Continue statin. Lipid profile showed normal triglycerides at 86, total cholesterol 93, LDL cholesterol 42 and HDL cholesterol 33.9. (10) Atrial fibrillation Rate controlled. Patient on Cardizem po. Continue Xarelto. Pt Condition on Discharge: Stable Discharge Disposition: Discharge Home Discharge Time: > 30 minutes Discharge Instructions DIET: Follow Instructions for: Heart Healthy Diet, Diabetic Diet Activities you can perform: Regular-No Restrictions Activities to Avoid: Prolonged Standing, Strenuous Activity Follow up Referrals: Cardiology - 1 Week Nephrology - 2-3 Days PCP Follow-up - 2-3 Days New Medications: Bumetanide (Bumetanide) 1 Mg Tab 2 MG PO Q8HR ckd #93 TAB Diltiazem (Cardizem) 30 Mg Tab 30 MG PO Q6HR Blood Pressure Management #120 TAB Continued Medications: Aspirin (Aspirin Children's) 81 Mg Chew 81 MG CHEW DAILY Ref 0 TAB Atorvastatin (Atorvastatin) 80 Mg Tab 80 MG PO HS Cholesterol Management #30 Ref 0 TAB Ergocalciferol (Drisdol) 50,000 Unit Cap 56495 UNITS PO Q7D Nutritional Supplement #30 Ref 0 CAP Ferrous Sulfate (Iron) 325 Mg Tab 325 MG PO BIDPC Take after a meal. Nutritional Supplement Ref 0 TAB Insulin Glargine Inj (Lantus Solostar Pen Inj) 300 Unit/3 Ml Pen 55 UNITS SQ HS Blood Sugar Management Ref 0 PEN Insulin Lispro (Human) Inj (Humalog Kwikpen Pen Inj) 300 Unit/3 Ml Pen 20 UNITS SQ ACHS Blood Sugar Management Ref 0 PEN Levothyroxine (Levothyroxine) 50 Mcg Tab 50 MCG PO DAILY Thyroid #30 Ref 0 TAB Multiple Vitamins W/ Minerals (Centravites 50 Plus) 1 Tab Tab 1 TAB PO whitley Pramipexole (Pramipexole) 1 Mg Tab 1 MG PO HS Parkinson Disease Mgmt #30 Ref 0 TAB Rivaroxaban (Xarelto) 15 Mg Tab 15 MG PO DAILY Blood Clot Prevention #30 Ref 0 TAB (This prescription has been renewed) Tamsulosin (Flomax) 0.4 Mg Cap 0.4 MG PO HS Manage Prostate Problems #30 Ref 0 CAP Discontinued Medications: Amiodarone (Amiodarone) 200 Mg Tab 200 MG PO DAILY Regulate Heart Beat #30 Ref 0 TAB Bumetanide (Bumex) 2 Mg Tab 2 MG PO BID Ref 0 TAB Hydralazine (Hydralazine) 25 Mg Tab 25 MG PO Q8HR Take with a meal Blood Pressure Management #90 Ref 0 TAB Metolazone (Metolazone) 5 Mg Tab 5 MG PO PRN Swelling #30 Ref 0 TAB Tim Vargas MD Jun 24, 2016 17:29
== END 2016-06-24 18:45 | disposition home or self-care (01) | DRG 280 ==
LOC: NEPE 04:04 → NEDA 06:29 → NEDH 12:25 → HCVR 18:00
PROVIDERS: ADMIT Family Medicine; ATTEND Hospitalist
PROC: 5A09357 Assistance with Respiratory Ventilation, Less than 24 Consecutive Hours, Continuous Positive Airway Pressure (ICD-10-PCS; 2016-06-18)
PROC: B2111ZZ Fluoroscopy of Multiple Coronary Arteries using Low Osmolar Contrast (ICD-10-PCS; 2016-06-19)
PROC: B2151ZZ Fluoroscopy of Left Heart using Low Osmolar Contrast (ICD-10-PCS; 2016-06-19)
PROC: 4A033BC Measurement of Arterial Pressure, Coronary, Percutaneous Approach (ICD-10-PCS; 2016-06-19)
PROC: 4A023N8 Measurement of Cardiac Sampling and Pressure, Bilateral, Percutaneous Approach (ICD-10-PCS; principal; 2016-06-19 10:15)
PROC: 05HM33Z Insertion of Infusion Device into Right Internal Jugular Vein, Percutaneous Approach (ICD-10-PCS; 2016-06-20)
PROC: 5A1D60Z (ICD-10-PCS; 2016-06-21)
DX: I21.4 Non-ST elevation (NSTEMI) myocardial infarction (principal); I50.23 Acute on chronic systolic (congestive) heart failure; J96.00 Acute respiratory failure, unspecified whether with hypoxia or hypercapnia; N18.4 Chronic kidney disease, stage 4 (severe); N17.9 Acute kidney failure, unspecified; E11.22 Type 2 diabetes mellitus with diabetic chronic kidney disease; E11.65 Type 2 diabetes mellitus with hyperglycemia; I42.9 Cardiomyopathy, unspecified; I13.0 Hypertensive heart and chronic kidney disease with heart failure and stage 1 through stage 4 chronic kidney disease, or unspecified chronic kidney disease; I16.1 Hypertensive emergency; I69.351 Hemiplegia and hemiparesis following cerebral infarction affecting right dominant side; I97.618 Postprocedural hemorrhage of a circulatory system organ or structure following other circulatory system procedure; I35.0 Nonrheumatic aortic (valve) stenosis; I25.10 Atherosclerotic heart disease of native coronary artery without angina pectoris; I16.0 Hypertensive urgency; E78.5 Hyperlipidemia, unspecified; I25.2 Old myocardial infarction; K21.9 Gastro-esophageal reflux disease without esophagitis; I48.91 Unspecified atrial fibrillation; E88.09 Other disorders of plasma-protein metabolism, not elsewhere classified; D64.9 Anemia, unspecified; Z87.891 Personal history of nicotine dependence; Z79.4 Long term (current) use of insulin
CPT/HCPCS: 36556; 36600; 71010; 76775; 76937; 77001; 80048; 80053; 80061; 80074; 81001; 82550; 82552; 82570; 82805; 82810; 82948; 83036; 83735; 83880; 84100; 84156; 84300; 84484; 85002; 85014; 85018; 85025; 85027; 85347; 85610; 85730; 90935; 93005; 93306; 93460; 93571; 94002; 96365; 96366; 96374; 96375; C1752; C1769; C1887; C1893; J0153; J1160; J1580; J1644; J1815; J2060; J2250; J2260; J2270; J2405; J3010; J7030; J7050; Q4081; Q9967